=== PATIENT | female | born 1950 | race Caucasian/White ===

== ENCOUNTER → 2020-09-10 | Outpatient (CLI) | payer MEDICARE, BC ==
[~2020-09-10] MED LIST: COVID-19 VACCINE (PFIZER)/PF 30 MCG/0.3 ML VIAL IM ONE; EPINEPHRINE INJ/PF 1 MG/1 ML AMPULE IM PRN
--- OUTSIDE RECORDS SUMMARY | 2020-09-13 10:30 | XMS REPORT ---
:1950 [facility] [address] [place] [address] Care Team Providers Name Role Phone Gerri ROGERS Primary Care Physician Unavailable Carlos MOFFETT Attending Clinician Unavailable PABLITO Attending Clinician Unavailable NIGEL Attending Clinician Unavailable ALEXIS ASHBY Attending Clinician Unavailable Charlee Stephenson Attending Clinician Unavailable Isabela Attending Clinician Unavailable Jayce MOFFETT Attending Clinician Unavailable Teto Cantor Attending Clinician Unavailable Allergies, Adverse Reactions, Alerts Allergy Allergy Status Severity Reaction(s) Onset Inactive Treating C omments Name Type Date Date Clinician citalopram Allergy to Active 2019-0 hydrobromi substance 05-18 de 00:00: 00 Levofloxac Allergy to Active 0 in substance 05-18 00:00: 00 Celecoxib Allergy to Active 0 substance 05-18 00:00: 00 citalopram Allergy to Inactive 2020-0 hydrobromi substance 05-14 de 00:00: 00 Levofloxac Allergy to Inactive 2019-0 in substance 05-14 00:00: 00 Celecoxib Allergy to Inactive 2020-0 substance 05-14 00:00: 00 Celecoxib Propensity Active High Swelling fa ce to adverse 1-11 reactions 00:00: 00 Levofloxac Propensity Active Low Headache 2018-0 O ther in to adverse 1-11 react ion(s reactions 00:00: ): 00 Headache He adache Linezolid Propensity Active Other (See 2018 to adverse Comments) 1-11 reactions 00:00: 00 CeleBREX Drug Active 2017-0 allergy 2-03 00:00: 00 citalopram Allergy to Inactive Unknown hydrobromi substance 01-19 de 00:00: 00 Levofloxac Allergy to Inactive Unknown in substance 01-19 00:00: 00 Celecoxib Allergy to Inactive Unknown substance 01-19 00:00: 00 citalopram Allergy to Inactive hydrobromi substance 01-19 de 00:00: 00 Levofloxac Allergy to Inactive in substance 01-19 00:00: 00 Celecoxib Allergy to Inactive substance 01-19 00:00: 00 Oxycodone- Propensity Active Moderate Dizziness Other Acetaminop to adverse re action(s hen reactions ): Oth er (See Comments )C NS Disorder Ot her reaction (s ): Dizzines s, Other (S ee Comments )C NS Disorder Medications Ordered Filled Start Stop Current Ordering Indication Dosage Frequency Signature Comments Components Medication Medication Date Date Medication? Clinician (SIG) Name Name amoxicillin Yes Acute UTI 1{tbl} Take 1 T mariama 1 -clavulanat -12 tablet by tabl et by e 00:00: mouth mouth (AUGMENTIN) 00 Three (3) Thre e (3) 500-125 mg times a times a per tablet day. day. ciprofloxac 2019-08 No surgical 500mg ciprofloxa in HCl 08-21 prophylaxis gina HCl (CIPRO) 15:00: (CIPRO) tablet 500 00 tablet 500 mg mg ciprofloxac 2019-08 No surgical 500mg 500 mg, in HCl 08-21 prophylaxis Oral, (CIPRO) 15:00: 14:42 Once, Tue tablet 500 00 :00 06/21/20 at mg 1500, For 1 dose
Ro utine, Indication s: surgical prophylaxi s amoxicillin 2019- No Acute UTI 1{tbl} Take 1 T mariama 1 -clavulanat 05-18 tablet by tabl et by e 00:00: 00:00 mouth mouth (AUGMENTIN) 00 :00 Three (3) Thre e (3) 500-125 mg times a times a per tablet day. day. ondansetron No 8mg Take 1 Take 1 (ZOFRAN-ODT 05-17 tablet (8 tabl et (8 ) 8 MG 00:00: 00:00 mg total) mg total ) disintegrat 00 :00 by mouth by bette beck ing tablet every every eight (8) eight (8) hours as hours as needed for needed nausea. for nausea. esomeprazol 2020-0 Yes esomeprazo e (NEXIUM) 9-14 le 40 MG 00:00: (NEXIUM) capsule 00 40 MG capsule famotidine 2019-0 Yes famotidine (PEPCID) 20 9-14 (PEPCID) MG tablet 00:00: 20 MG 00 tablet LINZESS 145 2019-0 Yes LINZESS mcg capsule 9-10 145 mcg 00:00: capsule 00 amoxicillin 2019- No Acute UTI 1{tbl} Take 1 T mariama 1 -clavulanat 04-2630 tablet by tabl et by e 00:00: 00:00 mouth mouth (AUGMENTIN) 00 :00 Three (3) Thre e (3) 500-125 mg times a times a per tablet day. day. sulfamethox 2020- No Recurrent Take 1 Ta ke 1 azole-trime 8-18 06-08 UTI tablet tablet thoprim 00:00: 00:00 (160 mg of (160 m g (BACTRIM 00 :00 trimethopr of DS) 800-160 im total) trim ethop mg per by mouth rim tablet Two (2) total) by times a mouth Two day. (2) times a day. amoxicillin 2019- No Acute UTI 1{tbl} Take 1 T mariama 1 -clavulanat 830 tablet by tabl et by e 00:00: 00:00 mouth mouth (AUGMENTIN) 00 :00 Three (3) Thre e (3) 500-125 mg times a times a per tablet day. day. meclizine Yes if needed if ne eded (ANTIVERT) 7-20 25 mg 00:00: tablet 00 ciprofloxac 2019- No Acute UTI 500mg Take 1 Ta ke 1 in HCl 6-15 30 tablet tablet (CIPRO) 500 00:00: 00:00 (500 mg (500 mg MG tablet 00 :00 total) by total) by mouth Two mouth Two (2) times (2) times a day. a day. amoxicillin 2019- No Acute UTI 1{tbl} Take 1 T mariama 1 -clavulanat 6-30 tablet by tabl et by e 00:00: 00:00 mouth mouth (AUGMENTIN) 00 :00 Three (3) Thre e (3) 500-125 mg times a times a per tablet day. day. sulfamethox 2019- No Recurrent Take 1 Ta ke 1 azole-trime 5-11 08-31 UTI tablet tablet thoprim 00:00: 00:00 (160 mg of (160 m g (BACTRIM 00 :00 trimethopr of DS) 800-160 im total) trim ethop mg per by mouth rim tablet Two (2) total) by times a mouth Two day. (2) times a day. amoxicillin No Acute UTI 1{tbl} Take 1 T mariama 1 -clavulanat 4-14 06-09 tablet by tabl et by e 00:00: 00:00 mouth mouth (AUGMENTIN) 00 :00 Three (3) Thre e (3) 500-125 mg times a times a per tablet day. day. estradiol No .01mg Insert 1 Insert 1 (VAGIFEM) 06 -12 tablet tablet 10 mcg 00:00: 00:00 (0.01 mg (0.01 mg vaginal 00 :00 total) total) tablet into the into the vagina Two vagina (2) times Two (2) a week. times a week. ciprofloxac No surgical 500mg ciprofloxa in HCl 2-04 prophylaxis gina HCl (CIPRO) 16:00: (CIPRO) tablet 500 00 tablet 500 mg mg sulfamethox 2019- No Take 1 Take 1 azole-trime 2-04 05-11 tablet tablet thoprim 00:00: 00:00 (160 mg of (160 m g (BACTRIM 00 :00 trimethopr of DS) 800-160 im total) trim ethop mg per by mouth rim tablet Two (2) total) by times a mouth Two day. (2) times a day. sulfamethox No Take 1 Take 1 azole-trime 1-20 10-08 tablet tablet thoprim 00:00: 00:00 (160 mg of (160 m g (BACTRIM 00 :00 trimethopr of DS) 800-160 im total) trim ethop mg per by mouth rim tablet Two (2) total) by times a mouth Two day. (2) times a day. amoxicillin 2020-0 2020- No 1{tbl} Take 1 Take 1 -clavulanat 1-20 06-09 tablet by tabl et by e 00:00: 00:00 mouth mouth (AUGMENTIN) 00 :00 Three (3) Thre e (3) 500-125 mg times a times a per tablet day. day. HYDROcodone 2018-08 Yes HYDROcodon -acetaminop 1-26 e-acetamin hen (NORCO) 00:00: ophen 5-325 mg 00 (NORCO) per tablet 5-325 mg per tablet amoxicillin 2018-08 2019- No 1{tbl} Take 1 Take 1 -clavulanat 1-25 12-30 tablet by tabl et by e 00:00: 00:00 mouth mouth (AUGMENTIN) 00 :00 Three (3) Thre e (3) 500-125 mg times a times a per tablet day. day. hydrocortis 2018-08 Yes hydrocorti one 0-01 sone (ANUSOL-HC) 00:00: (ANUSOL-HC 2.5 % 00 ) 2.5 % rectal rectal cream cream amoxicillin 2019- No 1{tbl} Take 1 Take 1 -clavulanat 9-23 11-25 tablet by tabl et by e 00:00: 00:00 mouth mouth (AUGMENTIN) 00 :00 Three (3) Thre e (3) 500-125 mg times a times a per tablet day. day. ciprofloxac 2019- No 500mg Take 1 Take 1 in HCl 9-17 11-25 tablet tablet (CIPRO) 500 00:00: 00:00 (500 mg (500 mg MG tablet 00 :00 total) by total) by mouth Two mouth Two (2) times (2) times a day. a day. AMITIZA 24 Yes AMITIZA 24 mcg capsule 6-12 mcg 00:00: capsule 00 PROCYAN Yes Take by Take by OLIG/UBI/ 4-18 mouth mouth T A/HB#155 14:54: daily. daily. (PYCNOGENOL 32 COMPLEX ORAL) GRAPE SEED Yes Take by Take b y EXTRACT 4-18 mouth mouth (GRAPE SEED 14:54: daily. daily. ORAL) 32 simethicone No 360mg Take 360 Take 360 (GAS-X 4-18 mg by mg by ULTRA-STREN 14:54: mouth mouth GTH) 180 mg 32 Three (3) Thre e (3) capsule times a times a day. day. cannabidiol No Take by Take by , CBD, 4-18 mouth. mouth. extract 100 14:54: mg/mL Soln 32 amoxicillin 2019- No 500mg Take 1 Take 1 (AMOXIL) 18 09 capsule capsule 500 MG 00:00: 00:00 (500 mg (500 mg capsule 00 :00 total) by total) b y mouth mouth nightly. nightly. ciprofloxac 2018- No 500mg Take 1 Take 1 in HCl 10-13-18 tablet tablet (CIPRO) 500 00:00: 00:00 (500 mg (500 mg MG tablet 00 :00 total) by total) by mouth Two mouth Two (2) times (2) times a day. a day. AMITIZA 8 2018- No 8ug 8 mcg 8 mcg mcg capsule 09-18 daily. daily. 00:00: 00:00 00 :00 cannabidiol Yes Take by Take by , CBD, 1-07 mouth. mouth. extract 100 14:40: mg/mL Soln 25 oxybutynin 2017-08- No 10MG Take 1 Take 1 (DITROPAN-X 10-0707 tablet (10 tab let L) 10 MG 24 00:00: 00:00 mg total) (10 mg hr tablet 00 :00 by mouth total) by daily. mouth daily. mupirocin 2017-08- No Apply Apply (BACTROBAN) 2 12-10 topically topi twyla 2 % 00:00: 23:59 Three (3) Three (3) ointment 00 :00 times a times a day. for 7 day. for days Apply 7 days to Apply to affected affected area TID area TID simethicone 2017-08- No 80mg Chew 80 mg Ch ew 80 (MYLICON) 14 every six mg nida ry 80 MG 14:09: 00:00 (6) hours six (6) chewable 13 :00 as needed hours a s tablet for needed flatulence for . flatulenc e. simethicone 2017-08 No 360mg Take 360 Take 360 (GAS-X 0-31 06-14 mg by mg by ULTRA-STREN 14:09: 00:00 mouth mouth GTH) 180 mg 13 :00 Three (3) Thre e (3) capsule times a times a day. day. ciprofloxac 2017-08- No 500MG Take 1 Take 1 in HCl 0-26 11-05 tablet tablet (CIPRO) 500 00:00: 23:59 (500 mg (500 mg MG tablet 00 :00 total) by total) by mouth Two mouth Two (2) times (2) times a day. for a day. 10 days for 10 days phenazopyri 2017-08- No 100MG Take 1 Take 1 dine 0- 10-29 tablet tablet (PYRIDIUM) 00:00: 23:59 (100 mg (100 m g 100 MG 00 :00 total) by total) by tablet mouth mouth Three (3) Three (3) times a times a day as day as needed for needed pain. for for pain. up to 3 for up to days 3 days cefuroxime 2017-08- No 500MG Take 1 Take 1 (CEFTIN) 0-10 10- tablet tablet 500 MG 00:00: 00:00 (500 mg (500 mg tablet 00 :00 total) by total) by mouth Two mouth Two (2) times (2) times a day. a day. nitrofurant 2017-08- No 50MG Take 1 Take 1 oin 0-04 10-26 capsule capsule (MACRODANTI 00:00: 00:00 (50 mg (50 mg N) 50 MG 00 :00 total) by total) by capsule mouth Four mouth (4) times Four (4) a day. times a day. amoxicillin 2017-08- No TAKE 1 TAKE 1 (AMOXIL) 0-01 04-18 CAPSULE BY CAPSUL E 500 MG 00:00: 00:00 MOUTH AT BY MOUTH capsule 00 :00 BEDTIME AT BEDTIME omeprazole 2017- Yes 40mg Take 40 mg Gurmeet e 40 (PRILOSEC) 9-18 by mouth mg by 40 MG 00:00: daily. mouth capsule 00 daily. sucralfate 2017-0 Yes 1g Take 1 g Take 1 g (CARAFATE) 9-18 by mouth by minerva th 1 gram 00:00: Four (4) Four (4) tablet 00 times a times a day. day. mupirocin 2018- No mupirocin (BACTROBAN) 04-1014 (BACTROBAN 2 % 00:00: 00:00 ) 2 % ointment 00 :00 ointment PROCTO-MED 2018- No PROCTO-MED HC 2.5 % 04-07 HC 2.5 % rectal 00:00: 00:00 rectal cream 00 :00 cream HYDROcodone 2018- No 1{tbl} Take 1 Take 1 -acetaminop 03-14 tablet by tabl et by hen (NORCO) 00:00: 00:00 mouth mouth 5-325 mg 00 :00 every four every per tablet (4) hours four (4) as needed. hours as needed. amoxicillin 2017- No 500MG Take 1 Take 1 (AMOXIL) 12-09 capsule capsule 500 MG 00:00: 00:00 (500 mg (500 mg capsule 00 :00 total) by total) b y mouth mouth daily. At daily. At bedtime bedtime amoxicillin 2017- No 500MG Take 1 Take 1 (AMOXIL) 12-02 capsule capsule 500 MG 00:00: 00:00 (500 mg (500 mg capsule 00 :00 total) by total) b y mouth mouth Three (3) Three (3) times a times a day. day. GRAPE SEED No Take by Take b y EXTRACT 4-12 mouth mouth (GRAPE SEED 15:00: daily. daily. ORAL) 01 CRANBERRY 2017- No Take by Take by FRUIT 406-18 mouth. mouth. EXTRACT 15:00: 00:00 (CRANBERRY 01 :00 ORAL) spironolact Yes 50mg Take 50 mg Ta ke 50 one 4-12 by mouth mg by (ALDACTONE) 14:57: Two (2) mouth Two 50 MG 51 times a (2) times tablet day. a day. cholecalcif Yes 4000U Take 4,000 Ta ke will, 4-12 Units by 4,000 vitamin D3, 14:57: mouth Units b y 1,000 unit 51 daily. mouth tablet daily. cinnamon Yes 500mg Take 500 Take 50 0 bark 500 mg 4-12 mg by mg by capsule 14:57: mouth mouth 51 Three (3) Three (3) times a times a day. day. glucosamine 2018- No 2{tbl} Take 2 Take 2 sulfate 500 11-28 tablets by tab lets mg Tab 14:57: 00:00 mouth by mouth 51 :00 daily. daily. ciprofloxac 2017- No 500MG Take 1 Take 1 in HCl 11-28 tablet tablet (CIPRO) 500 00:00: 00:00 (500 mg (500 mg MG tablet 00 :00 total) by total) by mouth Two mouth Two (2) times (2) times a day. a day. cephalexin 2017- No 500MG Take 1 Take 1 (KEFLEX) 11-28 capsule capsule 500 MG 00:00: 00:00 (500 mg (500 mg capsule 00 :00 total) by total) b y mouth mouth nightly. nightly. PROCYAN No Take by Take by OLIG/UBI/ 1-30 mouth mouth T A/HB#155 14:24: daily. daily. (PYCNOGENOL 53 COMPLEX ORAL) aspirin Yes 81mg Take 81 mg Take 8 1 (ECOTRIN) -30 by mouth mg by 81 MG 14:20: daily. mouth tablet 45 daily. amitriptyli Yes 10mg Take 10 mg Ta ke 10 ne (ELAVIL) -11 by mouth mg by 10 MG 11:00: nightly. mouth tablet 29 nightly. docusate 2018- No 250mg Take 250 Take 25 0 sodium -11 06-14 mg by mg by (COLACE) 11:00: 00:00 mouth mouth 250 MG 29 :00 daily. daily. capsule dicyclomine 2017- No Take by Take by (BENTYL) 20 - 10-31 mouth. mouth. mg tablet 11:00: 00:00 29 :00 furosemide Yes 40mg Take 40 mg Gurmeet e 40 (LASIX) 40 -11 by mouth mg by MG tablet 11:00: daily. mouth 28 daily. polyethylen 2018- No 17g Take 17 g Gurmeet e 17 g e glycol 08-29 by mouth by mouth (MIRALAX) 11:00: 00:00 daily. daily. 17 gram 28 :00 packet nitrofurant 2018- No 50MG Take 1 Take 1 oin 08-29 10-26 capsule capsule (MACRODANTI 00:00: 00:00 (50 mg (50 mg N) 50 MG 00 :00 total) by total) by capsule mouth mouth nightly. nightly. cloNIDine Yes 1{patch Place [address] Place 1 (CATAPRES-T 1-08 } patch on patch on TS) 0.2 00:00: the skin the skin mg/24 hr 00 once a once a week. week. fentaNYL 2016-08 Yes 1{patch Place 1 Place 1 (DURAGESIC) 2-28 } patch on patch on 50 mcg/hr 00:00: the skin the sk in patch 00 every every third day. third day. LYRICA 75 2016-08 Yes 75mg Take 75 mg Take 75 mg capsule 2-26 by mouth mg by 00:00: daily. mouth 00 daily. atenolol 2016-08 Yes 25mg Take 25 mg Take 25 (TENORMIN) 2-23 by mouth mg by 25 MG 00:00: daily. mouth tablet 00 daily. fenofibrate 2016-08 Yes 145mg Take 145 Take 145 (TRICOR) 2-23 mg by mg by 145 MG 00:00: mouth mouth tablet 00 daily. daily. KLOR-CON 2016-08 Yes 40meq 40 mEq Two 40 mE q M20 20 mEq 1-27 (2) times Two ( 2) tablet 00:00: a day. times a 00 day. clonazePAM 2016-08 Yes 2mg 2 mg 2 mg (KLONOPIN) 0-30 nightly as nigh tly 1 MG tablet 00:00: needed. as 00 needed. Cyclobenzap 2014- No 5 Daily rine Hcl -02 16- 21:11: 00:00 00 :00 Acetaminoph No 1 en/Hydrocod one Bitart Amitriptyli No 10 ne Hcl Aspirin No 81 Atenolol No 50 Cholecalcif No 1000 will Cinnamon No 500 Bark Clonazepam No 1 Clonidine No .3 Cranberry No 500 Fruit Dicyclomine No 10 Hcl Docusate No 500 Sodium Fentanyl No 50 Furosemide No 40 Glucosamine No 500 Sulfate Hydroxychlo No 200 roquine Sulfate [place]cad[place] No 2 Grape Seed Pantoprazol No 40 e Sodium Pantoprazol No 40 e Sodium Polyethylen No 17 e Glycol Potassium No 20 Chloride Pregabalin No 75 Pycnogenol No 1 Complex Spironolact No 25 one Triamterene No 1 /Hctz Triamterene No 1 /Hctz Aspirin Yes 81 Daily Atenolol Yes 50 Twice A Day Cholecalcif Yes 1000 Daily will Cinnamon Yes 500 Twice A Bark Day Clonazepam Yes 1 At Bedtime Clonidine Yes .3 Q7 Days Cranberry Yes 500 Twice A Fruit Day Dicyclomine Yes 10 Four Times Hcl Daily Docusate Yes 500 Daily Sodium Fentanyl Yes 50 Q3 Days Furosemide Yes 40 Daily Glucosamine Yes 500 Twice A Sulfate Day Hydroxychlo Yes 200 Daily roquine Sulfate [place] Yes 2 Twice A Grape Seed Day Pantoprazol Yes 40 Daily e Sodium Polyethylen Yes 17 Daily e Glycol Potassium Yes 20 Twice A Chloride Day Pregabalin Yes 75 Three Times A Day Pycnogenol Yes 1 At Bedtime Complex Spironolact Yes 25 Twice A one Day Triamterene Yes 1 Daily /Hctz Triamterene Yes 1 Daily /Hctz Acetaminoph Yes 1 Every 4 en/Hydrocod Hours as one Bitart needed for Pain Amitriptyli Yes 10 Twice A ne Hcl Day mv-min-C-gl Yes 2{tbl} Take 2 Take 2 utamin-lysi tablets by tab lets [id number] mouth by mouth ([place], daily. daily. LYSINE HCL,) 1,000-50 mg TbEF wheat Yes Take by Take by dextrin/barbara mouth. mouth. cium/aspart am (BENEFIBER + CALCIUM SUGAR-FREE ORAL) sennosides Yes 2.5mL Take 2.5 Take 2 .5 (SENNOSIDES mL by mL by ) 8.8 mg/5 mouth mouth mL Syrp nightly. nightly. senna-docus Yes 2{tbl} Take 2 Take 2 ate tablets by tablets (PERICOLACE mouth by mouth ) 8.6-50 mg daily. daily. Clonidine 2013- No .3 Hcl 01-19 00:00 :00 Fenofibrate 2013- No 145 Daily 01-19 00:00 :00 Hydroxychlo 2013- No 200 roquine 01-19 Sulfate 00:00 :00 Klor-Con 2013- No 01-19 00:00 :00 Potassium 2013- No 25 Chloride 01-19 00:00 :00 Spironolact 2014- No one 01-19 00:00 :00 Triamterene 2013- No 1 /Hctz 01-19 00:00 :00 Fentanyl 2013- No Patch 08-25 00:00 :00 Problems Condition Condition Condition Status Onset Resolution Last Treatin g Comments Name Details Category Date Date Treatment Clinician Date Drug-induce Drug-induce [id number] Active 2020-05-18 Last d d 05-18 15:28:10 Assessm en constipatio constipatio 00:00: t & Plan: n n 00 This is been better. Nausea Nausea [id number] Active 2020-05-17 Last 05-17 11:10:51 Assessm en 00:00: t & Plan : 00 She feel s like her fentanyl is makin g her nauseate d . Thyroid Thyroid [id number] Active 2020-02-25 Last nodule nodule 02-24 15:03:27 Assessm en 00:00: t & Plan : 00 She has a 4 mm nodule o n the ultrasou n d. I think shelby oshea needs to see an ENT. Helen t is reall y small. Hyperparath Hyperparath [id number] Active 2020-02-10 Last yroidism yroidism 02-09 13:29:45 Asses smen 00:00: t & Plan : 00 Her calcium level is normal Dysuria Dysuria [id number] Active 2019-01-30 Last 01-30 10:55:24 Assessm en 00:00: t & Plan : 00 This is the symptom that she is here for. Pulmonary Pulmonary [id number] Inactiv 2018-12-04 Last nodule nodule e 18 15:29:14 Assessm en 00:00: t & Plan : 00 This was diagnose d on the last CT that she had at [facility]. Shelby oshea and I littlejohn d a length y discussi o n about this. I told her that if it were me I would discuss see Dr. Zahraa maria and let him decide o r she coul d go ahead and have the CT done helen t Dr. Jayce herrera which is a wonderfu l idea. I think shelby oshea would be very unhappy if she had a larger nodule above that and it was not diagnose d so I chase d her that I think that she should probably go ahead and follow Dr. Jyace arellano o n and have the CT. Pulmonary Pulmonary [id number] Active 2018-12-04 Last nodule nodule 12-04 15:29:14 Assessm en 00:00: t & Plan : 00 She has 3 small pulmonar y nodules that hav e not changed. When I actually looked a t the CT t o me it looks like she has a little larger area helen t is an infiltra t e in the back of the righ t lung. I would really like her to see a pulmonar y doctor a t least once to make jess e everythi n g is oka y and she just needs follow-u p x-rays. Acute Acute Condition Active 2018-10-13 Las t bilateral bilateral 10-13 11:11:13 Ass essmen low back low back 00:00: t & Pl an: pain pain 00 She has without without bilatera l sciatica sciatica pain v raymond low down on her back. Hurts to move. Sh e really hard to know. We will do a culture and star t Cipro pending culture. 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 Not on any medicati o n. Acute UTI Acute UTI Condition Active 2017-082018-06-13 Last 10:28:00 Assessm en 00:00: t & Plan : 00 She seem s to have an acute UTI base d on her urinalys i s and symptoms . She will be treated with antibiot i cs. She has frequenc y and urgency without fever or chills. Renal mass Renal mass Condition Active 2017-11-28 Last 11-28 15:25:30 Assessm en 00:00: t & Plan : 00 Was malignan t but resected , I do not have the patholog y to stage it. Recurrent Recurrent Condition Active 2017-08-29 Last UTI UTI 08-29 11:35:45 Assessm en 00:00: t & Plan : 00 We will recultur e . Kidney Kidney Condition Active 2017-08-29 Las t stones stones 08-29 11:35:47 Assessm en 00:00: t & Plan : 00 Since sh e has 1 stone it shows up on the C T Incomplete Incomplete Condition Active 2017-08-29 Last bladder bladder 08-29 11:43:41 Assessm en emptying emptying 00:00: t & Pl an: 00 Her residual is 141 a while after sh e voided. Problem Condition Inactiv e Retention Retention Problem Inactiv of urine of urine e Constipatio Constipatio Problem Inactiv n n e Procedures Procedure Date / Time Performed Performing Clinician Devic e Auto OV Level 2020-05-31 00:00:00 New Patient 2020-05-31 00:00:00 X-ray of abdomen, supine, decubitus 2020-05-14 00:00:00 and erect Computed tomography of abdomen and 2020-05-14 00:00:00 pelvis for detection of renal calculus without contrast Tray Cath 14FR W/Drain Bag 2020-05-14 00:00:00 Bag Leg Disp Lg 2274 2020-05-14 00:00:00 CT CHEST WO CONTRAST 2020-02-16 11:04:[address] ABDOMEN WO CONTRAST 2020-02-16 10:59:00 Ramesh Kenney US THYROID 2020-02-16 10:55:00 Ramesh Kenney URINE CULTURE 2019-09-03 19:20:00 Ramesh Kenney OFFICE OUTPATIENT VISIT 25 MINUTES 2017-10-03 11:08:00 OFFICE/OUTPATIENT VISIT, EST 2017-01-24 10:00:00 ROUTINE VENIPUNCTURE 2017-01-24 10:00:00 OFFICE OUTPATIENT VISIT 25 MINUTES 2016-09-21 10:53:00 URINALYSIS, AUTO, W/O SCOPE 2016-09-17 11:15:00 OFFICE/OUTPATIENT VISIT, EST 2016-09-17 11:15:00 LIPID PANEL 2016-05-15 10:45:00 OFFICE/OUTPATIENT VISIT, EST 2016-05-15 10:45:00 ROUTINE VENIPUNCTURE 2016-05-15 10:45:00 URINALYSIS, AUTO W/SCOPE 2016-05-15 10:45:00 LIPID PANEL 2016-01-10 10:30:00 TRANSFERASE (AST) (SGOT) 2016-01-10 10:30:00 OFFICE/OUTPATIENT VISIT, EST 2016-01-10 10:30:00 X-RAY EXAM OF SINUSES 2016-01-10 10:30:00 GLYCOSYLATED HEMOGLOBIN TEST 2016-01-10 10:30:00 ROUTINE VENIPUNCTURE 2016-01-10 10:30:00 URINALYSIS, AUTO W/SCOPE 2016-01-10 10:30:00 BASIC METABOLIC PANEL 2016-01-10 10:30:00 RBC SED RATE, AUTOMATED 2016-01-10 10:30:00 URINALYSIS, AUTO W/SCOPE 2015-12-05 15:30:00 OFFICE/OUTPATIENT VISIT, EST 2015-09-05 12:15:00 ELECTROCARDIOGRAM, COMPLETE 2015-09-05 12:15:00 Fecal blood scrn immunoassay 2015-09-05 12:15:00 COMPREHEN METABOLIC PANEL 2015-08-31 11:15:00 ASSAY OF VITAMIN D 2015-08-31 11:15:00 URINALYSIS, AUTO, W/O SCOPE 2015-08-31 11:15:00 COMPLETE CBC W/AUTO DIFF WBC 2015-08-31 11:15:00 ROUTINE VENIPUNCTURE 2015-08-31 11:15:00 LIPID PANEL 2015-08-31 11:15:00 URINALYSIS, AUTO W/SCOPE 2015-08-23 14:00:00 URINALYSIS, AUTO W/SCOPE 2015-08-09 14:00:00 URINALYSIS, AUTO W/SCOPE 2015-06-30 15:45:00 OFFICE/OUTPATIENT VISIT, EST 2015-06-30 15:45:00 URINALYSIS, AUTO W/SCOPE 2015-06-27 14:30:00 FLU VACCINE AGE 3 \T\ OVER, IM 2015-06-22 13:15:00 IMMUNIZATION ADMIN 2015-06-22 13:15:00 Bone Density-axial Skeleton (1 Or 2015-04-28 15:00:00 More Sites) OFFICE/OUTPATIENT VISIT, EST 2015-04-14 13:00:00 COMPLETE CBC W/AUTO DIFF WBC 2015-04-07 11:00:00 MICROALBUMIN, QUANTITATIVE 2015-04-07 11:00:00 ROUTINE VENIPUNCTURE 2015-04-07 11:00:00 GLYCOSYLATED HEMOGLOBIN TEST 2015-04-07 11:00:00 LIPID PANEL 2015-04-07 11:00:00 COMPREHEN METABOLIC PANEL 2015-04-07 11:00:00 URINALYSIS, AUTO, W/O SCOPE 2015-04-07 11:00:00 URINALYSIS, AUTO W/SCOPE 2015-01-14 08:00:00 BASIC METABOLIC PANEL 2014-11-16 11:15:00 TRANSFERASE (AST) (SGOT) 2014-11-16 11:15:00 LIPID PANEL 2014-11-16 11:15:00 GLYCOSYLATED HEMOGLOBIN TEST 2014-11-16 11:15:00 URINALYSIS, AUTO W/SCOPE 2014-11-16 11:15:00 OFFICE/OUTPATIENT VISIT, EST 2014-11-16 11:15:00 ROUTINE VENIPUNCTURE 2014-11-16 11:15:00 URINALYSIS, AUTO W/SCOPE 2014-10-21 14:15:00 GLYCOSYLATED HEMOGLOBIN TEST 2014-08-04 14:15:00 ASSAY OF VITAMIN D 2014-08-04 14:15:00 LIPID PANEL 2014-08-04 14:15:00 TRANSFERASE (AST) (SGOT) 2014-08-04 14:15:00 ROUTINE VENIPUNCTURE 2014-08-04 14:15:00 BASIC METABOLIC PANEL 2014-08-04 14:15:00 OFFICE/OUTPATIENT VISIT, EST 2014-08-04 14:15:00 URINALYSIS, AUTO W/SCOPE 2014-07-20 14:30:00 URINALYSIS, AUTO W/SCOPE 2014-07-07 13:45:00 FLU VACCINE AGE 1 \T\ OVER, IM 2014-06-23 15:30:00 IMMUNIZATION ADMIN 2014-06-23 15:30:00 URINALYSIS, AUTO, W/O SCOPE 2014-05-04 13:30:00 ASSAY OF VITAMIN D 2014-04-13 10:00:00 ROUTINE VENIPUNCTURE 2014-04-13 10:00:00 GLYCOSYLATED HEMOGLOBIN TEST 2014-04-13 10:00:00 URINALYSIS, AUTO W/SCOPE 2014-04-13 10:00:00 ELECTROCARDIOGRAM, COMPLETE 2014-04-13 10:00:00 OFFICE/OUTPATIENT VISIT, EST 2014-04-13 10:00:00 URINALYSIS, AUTO W/SCOPE 2014-04-07 09:00:00 COMPLETE CBC W/AUTO DIFF WBC 2014-04-07 09:00:00 COMPREHEN METABOLIC PANEL 2014-04-07 09:00:00 ROUTINE VENIPUNCTURE 2014-04-07 09:00:00 LIPID PANEL 2014-04-07 09:00:00 URINALYSIS, AUTO W/SCOPE 2014-03-24 13:30:00 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 2014-02-25 00:00:00 X-RAY EXAM OF SINUSES 2014-02-10 13:45:00 OFFICE/OUTPATIENT VISIT, EST 2014-02-10 13:45:00 CHEST X-RAY 2014-02-10 13:45:00 HOSPITAL DISCHARGE DAY 2014-02-04 00:00:00 SUBSEQUENT HOSPITAL CARE 2014-02-04 00:00:00 OFFICE/OUTPATIENT VISIT, EST 2014-01-26 15:00:00 Non-covered item or service 2013-12-28 13:30:00 LIPID PANEL 2013-12-09 10:15:00 ASSAY OF VITAMIN D 2013-12-09 10:15:00 TRANSFERASE (AST) (SGOT) 2013-12-09 10:15:00 OFFICE/OUTPATIENT VISIT, EST 2013-12-09 10:15:00 ROUTINE VENIPUNCTURE 2013-12-09 10:15:00 URINALYSIS, AUTO W/SCOPE 2013-12-09 10:15:00 BASIC METABOLIC PANEL 2013-12-09 10:15:00 Results Test Description Test Time Test Comments Text Results Atomic Results Result Comments oxygen saturation, oximetry 2020-05-31 09:44:00 Test Item Value Reference Range Comments oxygen saturation, oximetry (test code = 20970) 96% % UA (urinalysis)2020-05-14 13:51:00 Test Item Value Reference Range Comments Urine Collection Type (test code = 90523-0) URN,CC Urine color [id number] 13:51:00 Test Item Value Reference Range Comments Urine Color (test code = 5778-6) YELLOW YELLOW Urine appearance [id number] 13:51:00 Test Item Value Reference Range Comments Urine Appearance (test code = 5767-9) CLEAR CLEAR Urine glucose detection by test [id number] 13:51:00 Test Item Value Reference Range Comments Urine Glucose (UA) (test code = 50045-0) NEGATIVE NEGATIV E Urine total bilirubin detection by test [id number] 13:51:00 Test Item Value Reference Range Comments Urine Bilirubin (test code = 5770-3) NEGATIVE NEGATIVE Urine ketones detection by test [id number] 13:51:00 Test Item Value Reference Range Comments Urine Ketones (test code = 2514-8) NEGATIVE NEGATIVE Specific gravity of Urine by Refractometry [id number] 13:51:00 Test Item Value Reference Range Comments Urine Specific [place] (test code = 09592-0) 1.012 1.0 10-1.025 Urine erythrocytes [id number] 13:51:00 Test Item Value Reference Range Comments Urine Occult Blood (test code = 95311-5) NEGATIVE NEG, TR BG Urine pH [id number] 13:51:00 Test Item Value Reference Range Comments Urine pH (test code = 2756-5) 6.5 5.0-7.5 Urine protein detection by test [id number] 13:51:00 Test Item Value Reference Range Comments Urine Protein (test code = 51980-2) NEGATIVE NEG, TRACE Urine urobilinogen [id number] 13:51:00 Test Item Value Reference Range Comments Urine Urobilinogen (test code = 41485-7) 1.0 0.2 Urine nitrite [id number] 13:51:00 Test Item Value Reference Range Comments Urine Nitrate (test code = 34581-6) NEGATIVE NEGATIVE Leukocyte esterase ur jsyhtaeu0513-18-19 13:51:00 Test Item Value Reference Range Comments Urine Leukocyte Esterase (test code = 5799-2) NEGATIVE NE G, TRACE US Thyroid (02/16/2020 10:55 AM EDT)2020-02-16 00:00:00US Thyroid (02/16/2020 10:55 AM EDT)NarrativePerformed AtThis result has an attachment that is not av ailable.CT Abdomen Wo Contrast (02/16/2020 10:59 AM EDT)2020-02-16 00:00:00CT Abdomen Wo Contrast (02/16/2020 10:59 AM EDT)NarrativePerformed At CT Chest Wo Contrast (02/16/2020 11:04 AM EDT)2020-02-16 00:00:00CT Chest Wo Contrast (02/16/2020 11:04 AM EDT)NarrativePerformed At #[id number] 14:20:00 Test Item Value Reference Range Comments Urine Culture, Comprehensive (test Final report code = Urine Culture, Comprehensive) Result 1 (test code = Result 1) Proteus penneri Result 2 (test code = Result 2) Klebsiella pneumoniae Antimicrobial Susceptibility (test Comment code = Antimicrobial Susceptibility) Urine [id number] 11:30:00Urine Culture, Comprehensive Comment: URINE CULTUREFinal CULTURE WORKUP 10/26/17 CB ORG. 1 STREP GP 72 CB ORG. 1 PURITY MIXRPT GP 72 ORG. 2 ? S.A. SUB 10/28/17 CB ORG. 1 PURITY MIX GP 72 ORG. 2 STAPH LATEX POS 71 Organism 1 ENTEROCOCCUS FAECALIS COLONY COUNTGREATER THAN 100,000 CFU/ml Organism 2 STAPHYLOCOCCUS AUREUS COLONY COUNT50,000-100,000 CFU/ml ENTEROCOCCUS [id number] GRAM POS SENSITIVITY RX M.I.C. SUPERVISING EDITOR TRAILER AMPICILLIN S CHLORAMPHENICOL S CIPROFLOXACIN R ERYTHROMYCIN R NITROFURANTOIN R LEVOFLOXACIN R LINEZOLID S MINOCYCLINE R SUPERVISING EDITOR TRAILER NORFLOXACIN R SUPERVISING EDITOR TRAILER PENICILLIN S SYNERGY-GENTAMICIN HIGH LEVEL R SUPERVISING EDITOR TRAILER SYNERGY-STREPTOMYCIN HIGH LVL S SUPERVISING EDITOR TRAILER VANCOMYCIN S DAPTOMYCIN S SUPERVISING EDITOR TRAILER STAPHYLOCOCCUS [id number] GRAM POS SENSITIVITY RX M.I.C. SUPERVISING EDITOR TRAILER CLINDAMYCIN R CIPROFLOXACIN S ERYTHROMYCIN R NITROFURANTOIN S GENTAMICIN S LEVOFLOXACIN S LINEZOLID S MOXIFLOXACIN S SUPERVISING EDITOR TRAILER MINOCYCLINE S SUPERVISING EDITOR TRAILER OXACILLIN S CEFOXITIN SCREE NNEG PENICILLIN R RIFAM PINS TRIMETH/SULFA S QUINUPRISTIN/DALFOPRISTIN S TE TRACYCLINES VANCOMYCINS DAPTOMYCINS SUPERVISING EDITOR TRAILER ORG. 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 [facility] CONVERSIONUrine Culture, Comprehensive ([facility]: [id number]) [id number])2017-10-07 00:00:00 Test Item Value Reference Range Comments Urine Culture,Comprehensive (test code = Final report [id number]) Result 1 (test code = 507464) Comment Protein+Creatinine Urine (Random) ([facility]: [id number]) ([id number])2017-10-01 00:00:00 Test Item Value Reference Range Comments Protein/Creat Urine Ratio (test code = 89061-9) 126.29 mg/g 0.00-200.00 Urine Creatinine Random (test code = Urine 103.7 mg/dL Creatinine Random) Urine/CFP Protein Random (test code = Urine/CFP 13.1 mg/dL Protein Random) ALT (SGPT) ([facility]: [id number])2017-10-01 00:00:00 Test Item Value Reference Range Comments ALT (test code = ALT) 26 IU/L 14-59 Renal Function Panel (10) ([facility]: [id number]) ([id number])2017-10-01 00:00:00 Test Item Value Reference Range Comments AnGp (test code = AnGp) 15.20 eGFR Non (test code = 48.96 mL/min/1.73m2 eGFR Non ) eGFR (test code = eGFR 59.24 mL/min/1.73m2 ) Carbon dioxide (test code = Carbon 25.9 mEq/L 21.0-32.0 dioxide) Albumin (test code = Albumin) 4.0 g/dL 3.4-5.0 Potassium (test code = Potassium) 4.1 mEq/L 3.5-5.1 Sodium (test code = Sodium) 140 mEq/L 136-145 Calcium (test code = Calcium) 9.8 mg/dL 8.5-10.1 BUN (test code = BUN) 32 mg/dL 7-18 Chloride (test code = Chloride) 103 mEq/L 98-107 Glucose (test code = Glucose) 103 mg/dL 74-106 Creatinine (test code = Creatinine) 1.1 mg/dL 0.6-1.0 Phosphorus (test code = Phosphorus) 4.0 mg/dL 2.6-4.7 Intact PTH ([facility]: [id number]) ([id number])2017-10-01 00:00:00 Test Item Value Reference Range Comments IPTH (test code = IPTH) 26.9 pg/mL 8.2-83.5 CBC, Platelet; No Differential ([facility]: [id number]) ([id number])2017-10-01 00:00:00 Test Item Value Reference Range Comments Hemoglobin (test code = Hemoglobin) 14.2 g/dL 11.2-15.7 MCHC (test code = MCHC) 32.0 g/dL 32.2-35.5 MCH (test code = MCH) 29.6 pg/cell 25.6-32.2 Hematocrit (test code = Hematocrit) 44.4 % 34.1-44.9 MCV (test code = MCV) 93 fL 79-95 RDWC (test code = RDWC) 14.6 % 11.7-14.4 Platelet count (test code = Platelet count) 226 x10-3/uL 182- 369 MPV (test code = MPV) 10.7 fl WBC (test code = WBC) 7.2 x10-3/uL 4.0-10.0 RBC (test code = RBC) 4.79 x10-6/uL 3.93-5.22 Magnesium, Serum ([facility]: [id number]) ([id number])2017-10-01 00:00:00 Test Item Value Reference Range Comments Magnesium (test code = Magnesium) 2.0 mg/dL 1.8-2.4 Vitamin D, 25-Hydroxy ([facility]: [id number]) ([id number])2017-10-01 00:00:00 Test Item Value Reference Range Comments Vitamin D (test code = Vitamin D) 58.6 ng/mL 30.0-100.0 Lipid Panel ([facility]: [id number])2017-10-01 00:00:00 Test Item Value Reference Range Comments HDL (test code = HDL) 34 mg/dL 40-60 Triglyceride (test code = Triglyceride) 214 mg/dL <150 Cholesterol (test code = Cholesterol) 170 mg/dL <200 cLDL (test code = cLDL) 93.20 <100.00 cVLDL (test code = cVLDL) 42.80 <32.00 AST (SGOT) ([facility]: [id number])2017-10-01 00:00:00 Test Item Value Reference Range Comments AST (test code = AST) 26 IU/L 15-37 Creatine Kinase, Total, Serum ([facility]: [id number])2017-10-01 00:00:00 Test Item Value Reference Range Comments Creatinine Kinase (test code = Creatinine Kinase) 31 U/L 26-192 URINALYSIS([id number])2017-04-25 15:18:00 Test Item Value Reference Range Comments UKET (test code = UKET) NEGATIVE Negative PH (test code = PH) 6.5 UUROBIL (test code = UUROBIL) 1.0 0.2, 1.0 UBLD (test code = UBLD) NEGATIVE Negative NIT (test code = NIT) NEGATIVE Negative COLOR (test code = COLOR) YELLOW Yellow KRISTINE (test code = KRISTINE) NEGATIVE Negative UGLU (test code = UGLU) NEGATIVE Negative SPGR (test code = SPGR) 1.015 1.010-1.030 UBIL (test code = UBIL) NEGATIVE MG/DL Negative CLAR (test code = CLAR) CLEAR Clear TPU (test code = TPU) NEGATIVE Negative URINE [id number] 11:05:00 Test Item Value Reference Range Comments GOKUL (test code = GOKUL) 1+ None UWBC (test code = UWBC) 0-2 NONE EPI (test code = EPI) 1-2 None URINALYSIS()2017-04-09 11:05:00 Test Item Value Reference Range Comments UBIL (test code = UBIL) NEGATIVE MG/DL Negative SPGR (test code = SPGR) 1.015 1.010-1.030 COLOR (test code = COLOR) YELLOW Yellow UUROBIL (test code = UUROBIL) 0.2 0.2, 1.0 UGLU (test code = UGLU) NEGATIVE Negative UBLD (test code = UBLD) NEGATIVE Negative PH (test code = PH) 5.5 TPU (test code = TPU) NEGATIVE Negative KRISTINE (test code = KRISTINE) TRACE Negative UKET (test code = UKET) NEGATIVE Negative NIT (test code = NIT) NEGATIVE Negative CLAR (test code = CLAR) CLEAR Clear [id number] 14:08:00 Test Item Value Reference Range Comments HGB (test code = HGB) 13.3 G/DL 11.4-14.4 RDW (test code = RDW) 13.8 % 12.0-15.1 RBC (test code = RBC) 4.68 CU/MM 3.69-4.88 MCHC (test code = MCHC) 33.4 G/DL 33.5-35.5 PLT (test code = PLT) 188 K/UL 165-353 HCT (test code = HCT) 39.7 % 33.3-41.4 MCH (test code = MCH) 28.4 PQ 26.8-33.2 MCV (test code = MCV) 85 FL 79-95 WBC (test code = WBC) 7.3 K/UL 3.6-11.1 CHEM [id number] 14:08:00 Test Item Value Reference Range Comments CA (test code = CA) 9.3 MG/DL 8.5-10.1 TP (test code = TP) 6.8 G/DL 6.9-8.5 ION GAP (test code = ION GAP) 8 4-16 CO2 (test code = CO2) 32.2 MMOL/L 21.0-32.0 EGFRAA (test code = EGFRAA) 63.51 >60.00 NA (test code = NA) 143 MMOL/L 136-145 GLU (test code = GLU) 109 MG/DL 70-110 BUN/CREAT RATIO (test code = BUN/CREAT RATIO) 20 10 -14 CR (test code = CR) 1.1 MG/DL 0.4-1.3 ALB (test code = ALB) 3.8 G/DL 3.2-4.7 ALT (test code = ALT) 20 U/L 9-61 K (test code = K) 4.3 MMOL/L 3.5-5.1 BUN (test code = BUN) 22 MG/DL 7-18 ALK PHOS (test code = ALK PHOS) 51 U/L 50-136 AST (test code = AST) 24 U/L 9-37 BILT (test code = BILT) 0.3 MG/DL 0.1-1.0 GLOB (test code = GLOB) 3.0 1.9-4.5 EGFR (test code = EGFR) 52.40 >60.00 CL (test code = CL) 107 MMOL/L 98-110 URINALYSIS([id number])2017-03-14 14:08:00 Test Item Value Reference Range Comments NIT (test code = NIT) NEGATIVE Negative SPGR (test code = SPGR) 1.010 1.010-1.030 COLOR (test code = COLOR) YELLOW Yellow UGLU (test code = UGLU) NEGATIVE Negative UBLD (test code = UBLD) NEGATIVE Negative CLAR (test code = CLAR) CLEAR Clear UBIL (test code = UBIL) NEGATIVE MG/DL Negative PH (test code = PH) 5.5 UUROBIL (test code = UUROBIL) 0.2 0.2, 1.0 KRISTINE (test code = KRISTINE) NEGATIVE Negative TPU (test code = TPU) NEGATIVE Negative UKET (test code = UKET) NEGATIVE Negative Urine Culture, [id number] 14:08:00 Test Item Value Reference Range Comments Result 1 (test code = 341871) No growth Result 1 (test code = 4959263) No growth Urine Culture, Routine (test code = 627074) Final report Urine Culture, Routine (test code = 4747969) Final report URINE [id number] 13:15:00 Test Item Value Reference Range Comments UWBC (test code = UWBC) TNTC NONE URBC (test code = URBC) 5-10 None GOKUL (test code = GOKUL) 3+ None EPI (test code = EPI) Occ None URINALYSIS([id number])2017-02-25 13:15:00 Test Item Value Reference Range Comments UBIL (test code = UBIL) NEGATIVE MG/DL Negative NIT (test code = NIT) POSITIVE Negative UUROBIL (test code = UUROBIL) 0.2 0.2, 1.0 UBLD (test code = UBLD) 3+ Negative TPU (test code = TPU) NEGATIVE Negative SPGR (test code = SPGR) 1.010 1.010-1.030 KRISTINE (test code = KRISTINE) 3+ Negative UGLU (test code = UGLU) NEGATIVE Negative UKET (test code = UKET) NEGATIVE Negative COLOR (test code = COLOR) YELLOW Yellow PH (test code = PH) 5.5 CLAR (test code = CLAR) CLOUDY Clear URINE [id number] 14:48:00 Test Item Value Reference Range Comments URBC (test code = URBC) None None UWBC (test code = UWBC) 0-2 NONE GOKUL (test code = GOKUL) 3+ None EPI (test code = EPI) Occ None URINALYSIS([id number])2017-02-06 14:48:00 Test Item Value Reference Range Comments UBLD (test code = UBLD) NEGATIVE Negative CLAR (test code = CLAR) CLEAR Clear PH (test code = PH) 6.0 UKET (test code = UKET) NEGATIVE Negative UUROBIL (test code = UUROBIL) 0.2 0.2, 1.0 KRISTINE (test code = KRISTINE) NEGATIVE Negative COLOR (test code = COLOR) YELLOW Yellow UGLU (test code = UGLU) NEGATIVE Negative UBIL (test code = UBIL) NEGATIVE MG/DL Negative TPU (test code = TPU) NEGATIVE Negative NIT (test code = NIT) POSITIVE Negative SPGR (test code = SPGR) 1.010 1.010-1.030 AST(SGOT)2017-01-24 10:30:00 Test Item Value Reference Range Comments AST (test code = AST) 20 U/L 9-37 LIPID [id number] 10:30:00 Test Item Value Reference Range Comments HDL (test code = HDL) 34 MG/DL 32-96 CHOL (test code = CHOL) 156 MG/DL 140-200 DLDL (test code = DLDL) 94 MG/DL 100-130 CHD (test code = CHD) 21.79 TGL (test code = TGL) 169 MG/DL 30-200 LYTES [id number] 10:30:00 Test Item Value Reference Range Comments CR (test code = CR) 1.3 MG/DL 0.4-1.3 NA (test code = NA) 141 MMOL/L 136-145 CL (test code = CL) 104 MMOL/L 98-110 EGFRAA (test code = EGFRAA) 52.39 >60.00 CA (test code = CA) 9.3 MG/DL 8.5-10.1 GLU (test code = GLU) 120 MG/DL 70-110 EGFR (test code = EGFR) 43.23 >60.00 ION GAP (test code = ION GAP) 12 4-16 CO2 (test code = CO2) 29.0 MMOL/L 21.0-32.0 BUN/CREAT RATIO (test code = BUN/CREAT RATIO) 22 10 -14 BUN (test code = BUN) 28 MG/DL 7-18 K (test code = K) 4.3 MMOL/L 3.5-5.1 [id number] 10:30:00 Test Item Value Reference Range Comments HA1C (test code = HA1C) 5.7 % 4.8-6.0 URINALYSIS([id number])2016-12-27 14:15:00 Test Item Value Reference Range Comments CLAR (test code = CLAR) CLEAR Clear UBIL (test code = UBIL) NEGATIVE MG/DL Negative TPU (test code = TPU) NEGATIVE Negative UKET (test code = UKET) NEGATIVE Negative UBLD (test code = UBLD) NEGATIVE Negative UGLU (test code = UGLU) NEGATIVE Negative NIT (test code = NIT) POSITIVE Negative SPGR (test code = SPGR) 1.010 1.010-1.030 UUROBIL (test code = UUROBIL) 0.2 0.2, 1.0 KRISTINE (test code = KRISTINE) NEGATIVE Negative COLOR (test code = COLOR) YELLOW Yellow PH (test code = PH) 5.5 URINE [id number] 14:15:00 Test Item Value Reference Range Comments GOKUL (test code = GOKUL) 2+ None UWBC (test code = UWBC) 0-2 NONE Urine Culture, [id number] 12:56:00 Test Item Value Reference Range Comments Result 1 (test code = 072187) No growth Urine Culture, Routine (test code = 155903) Final report Urine Culture, Routine (test code = 5830774) Final report Result 1 (test code = 5454634) No growth URINE [id number] 12:56:00 Test Item Value Reference Range Comments UWBC (test code = UWBC) 5-10 NONE GOKUL (test code = GOKUL) 4+ None EPI (test code = EPI) 2-4 None URBC (test code = URBC) None None URINALYSIS([id number])2016-10-17 12:56:00 Test Item Value Reference Range Comments NIT (test code = NIT) NEGATIVE Negative SPGR (test code = SPGR) 1.015 1.010-1.030 UKET (test code = UKET) NEGATIVE Negative COLOR (test code = COLOR) YELLOW Yellow UBIL (test code = UBIL) NEGATIVE MG/DL Negative UGLU (test code = UGLU) NEGATIVE Negative UUROBIL (test code = UUROBIL) 1.0 0.2, 1.0 TPU (test code = TPU) NEGATIVE Negative PH (test code = PH) 6.5 UBLD (test code = UBLD) NEGATIVE Negative CLAR (test code = CLAR) CLOUDY Clear KRISTINE (test code = KRISTINE) 1+ Negative OCCULT BLOOD AUTO [id number] 11:37:00 Test Item Value Reference Range Comments OCBS (test code = OCBS) Negative Negative SURE PATH PAP [id number] 11:37:00 Test Item Value Reference Range Comments Sendouts * (test code = ) Sent to Reference Lab Urine Culture, [id number] 11:36:00 Test Item Value Reference Range Comments Urine Culture, Routine (test code = 920534) Final report Result 1 (test code = 308900) No growth Result 1 (test code = 7675985) No growth Urine Culture, Routine (test code = 6274056) Final report URINALYSIS([id number])2016-09-17 11:36:00 Test Item Value Reference Range Comments SPGR (test code = SPGR) 1.010 1.010-1.030 COLOR (test code = COLOR) YELLOW Yellow UKET (test code = UKET) NEGATIVE Negative KRISTINE (test code = KRISTINE) NEGATIVE Negative UUROBIL (test code = UUROBIL) 0.2 0.2, 1.0 TPU (test code = TPU) NEGATIVE Negative UBIL (test code = UBIL) NEGATIVE MG/DL Negative NIT (test code = NIT) NEGATIVE Negative UGLU (test code = UGLU) NEGATIVE Negative UBLD (test code = UBLD) NEGATIVE Negative CLAR (test code = CLAR) CLEAR Clear PH (test code = PH) 5.0 Urine Culture, [id number] 10:46:00 Test Item Value Reference Range Comments Result 1 (test code = 798605) Comment Result 1 (test code = 3340735) Comment Urine Culture, Routine (test code = 833043) Final report Urine Culture, Routine (test code = 5669906) Final report [id number] 10:46:00 Test Item Value Reference Range Comments MAG (test code = MAG) 1.9 MG/DL 1.8-2.4 URINE [id number] 10:46:00 Test Item Value Reference Range Comments URBC (test code = URBC) None None EPI (test code = EPI) 1-2 None UWBC (test code = UWBC) 2-4 NONE GOKUL (test code = GOKUL) 3+ None PARATHYROID [id number] 10:46:00 Test Item Value Reference Range Comments PTH (test code = PTH) 28.7 PG/ML 8.2-83.5 CBC WITH [id number] 10:46:00 Test Item Value Reference Range Comments RDW (test code = RDW) 13.9 % 12.0-15.1 HGB (test code = HGB) 13.0 G/DL 11.4-14.4 GR% (test code = GR%) 56.6 % 43.3-71.9 EO% (test code = EO%) 4.9 % 0.0-7.8 LY# (test code = LY#) 1.7 K/uL 1.1-2.7 BA% (test code = BA%) 0.8 % 0.0-1.1 MCV (test code = MCV) 86 FL 79-95 MCHC (test code = MCHC) 33.0 G/DL 32.0-35.5 GR# (test code = GR#) 3.2 K/uL 1.9-7.2 PLT (test code = PLT) 194 K/UL 165-353 MO% (test code = MO%) 7.5 % 4.6-12.4 LY% (test code = LY%) 30.2 % 16.8-43.5 MPV (test code = MPV) 8.4 FL 7.5-10.7 MO# (test code = MO#) 0.4 # 0.3-0.8 RBC (test code = RBC) 4.58 M/uL 3.69-4.88 MCH (test code = MCH) 28.4 PQ 26.8-33.2 EO# (test code = EO#) 0.3 # 0.0-0.5 HCT (test code = HCT) 39.4 % 33.3-41.4 BA# (test code = BA#) 0.0 K/uL 0.0-0.1 WBC (test code = WBC) 5.6 K/UL 3.6-11.1 Prot+CreatU (Random)2016-09-12 10:46:00 Test Item Value Reference Range Comments Creatinine, Urine (test code = 883780) 83.3 mg/dL Not Estab . Protein,Total,Urine (test code = 430042) 13.0 mg/dL Not Est ab. Protein/Creat Ratio (test code = 370899) 156 mg/g creat 0-200 [id number] 10:46:00 Test Item Value Reference Range Comments PHOS (test code = PHOS) 3.5 MG/DL 2.5-4.9 CHEM [id number] 10:46:00 Test Item Value Reference Range Comments AST (test code = AST) 19 U/L 9-37 CA (test code = CA) 9.0 MG/DL 8.5-10.1 NA (test code = NA) 143 MMOL/L 136-145 K (test code = K) 3.8 MMOL/L 3.5-5.1 CR (test code = CR) 1.0 MG/DL 0.4-1.3 BUN (test code = BUN) 27 MG/DL 7-18 ALT (test code = ALT) 20 U/L 9-61 EGFR (test code = EGFR) 58.58 >60.00 ION GAP (test code = ION GAP) 12 4-16 GLOB (test code = GLOB) 3.1 1.9-4.5 GLU (test code = GLU) 113 MG/DL 70-110 CL (test code = CL) 108 MMOL/L 98-110 ALK PHOS (test code = ALK PHOS) 52 U/L 50-136 TP (test code = TP) 6.7 G/DL 6.9-8.5 EGFRAA (test code = EGFRAA) 71.00 >60.00 BILT (test code = BILT) 0.3 MG/DL 0.1-1.0 ALB (test code = ALB) 3.6 G/DL 3.2-4.7 BUN/CREAT RATIO (test code = BUN/CREAT RATIO) 27 10 -14 CO2 (test code = CO2) 27.1 MMOL/L 21.0-32.0 25 OH VITAMIN D [id number] 10:46:00 Test Item Value Reference Range Comments VIT D (test code = VIT D) 36 NG/ML 30-100 LIPID [id number] 10:46:00 Test Item Value Reference Range Comments TGL (test code = TGL) 126 MG/DL 30-200 DLDL (test code = DLDL) 85 MG/DL 100-130 CHOL (test code = CHOL) 141 MG/DL 140-200 CHD (test code = CHD) 27.66 HDL (test code = HDL) 39 MG/DL 32-96 [id number] 10:46:00 Test Item Value Reference Range Comments UALB (test code = UALB) 1.3 MG/L 1.3-20.0 UALB/UCR RATIO (test code = UALB/UCR RATIO) 1 MG/DL UCR (test code = UCR) 89.2 MG/DL 30.0-125.0 URINALYSIS()2016-09-12 10:46:00 Test Item Value Reference Range Comments UBLD (test code = UBLD) NEGATIVE Negative UUROBIL (test code = UUROBIL) 1.0 0.2, 1.0 UBIL (test code = UBIL) NEGATIVE MG/DL Negative PH (test code = PH) 6.5 COLOR (test code = COLOR) YELLOW Yellow CLAR (test code = CLAR) CLEAR Clear SPGR (test code = SPGR) 1.015 1.010-1.030 UKET (test code = UKET) NEGATIVE Negative UGLU (test code = UGLU) NEGATIVE Negative TPU (test code = TPU) NEGATIVE Negative KRISTINE (test code = KRISTINE) 1+ Negative NIT (test code = NIT) NEGATIVE Negative GLY.[id number] 10:46:00 Test Item Value Reference Range Comments HA1C (test code = HA1C) 5.5 % 4.8-6.0 URINALYSIS()2016-07-03 15:21:00 Test Item Value Reference Range Comments UBIL (test code = UBIL) NEGATIVE MG/DL Negative SPGR (test code = SPGR) 1.015 1.010-1.030 UGLU (test code = UGLU) NEGATIVE Negative UUROBIL (test code = UUROBIL) 1.0 0.2, 1.0 KRISTINE (test code = KRISTINE) NEGATIVE Negative CLAR (test code = CLAR) CLEAR Clear PH (test code = PH) 6.5 NIT (test code = NIT) NEGATIVE Negative UBLD (test code = UBLD) NEGATIVE Negative TPU (test code = TPU) NEGATIVE Negative UKET (test code = UKET) NEGATIVE Negative COLOR (test code = COLOR) YELLOW Yellow Urine Culture, [id number] 15:21:00 Test Item Value Reference Range Comments Urine Culture, Routine (test code = 097076) Final report Result 1 (test code = 766736) Comment Result 1 (test code = 2803433) Comment Urine Culture, Routine (test code = 5443899) Final report LYTES [id number] 11:15:00 Test Item Value Reference Range Comments CA (test code = CA) 9.4 MG/DL 8.5-10.1 CO2 (test code = CO2) 30.8 MMOL/L 21.0-32.0 GLU (test code = GLU) 103 MG/DL 70-110 BUN/CREAT RATIO (test code = BUN/CREAT RATIO) 23 10 -14 NA (test code = NA) 141 MMOL/L 136-145 BUN (test code = BUN) 25 MG/DL 7-18 CR (test code = CR) 1.1 MG/DL 0.4-1.3 K (test code = K) 4.8 MMOL/L 3.5-5.1 EGFRAA (test code = EGFRAA) 63.66 >60.00 ION GAP (test code = ION GAP) 10 4-16 EGFR (test code = EGFR) 52.53 >60.00 CL (test code = CL) 105 MMOL/L 98-110 GLY.[id number] 11:15:00 Test Item Value Reference Range Comments HA1C (test code = HA1C) 5.2 % 4.8-6.0 URINALYSIS([id number])2016-05-15 11:15:00 Test Item Value Reference Range Comments NIT (test code = NIT) NEGATIVE Negative CLAR (test code = CLAR) CLEAR Clear COLOR (test code = COLOR) YELLOW Yellow KRISTINE (test code = KRISTINE) 1+ Negative UKET (test code = UKET) NEGATIVE Negative SPGR (test code = SPGR) 1.020 1.010-1.030 UUROBIL (test code = UUROBIL) 1.0 0.2, 1.0 UGLU (test code = UGLU) NEGATIVE Negative TPU (test code = TPU) NEGATIVE Negative PH (test code = PH) 7.0 UBLD (test code = UBLD) NEGATIVE Negative UBIL (test code = UBIL) NEGATIVE MG/DL Negative LIPID [id number] 11:15:00 Test Item Value Reference Range Comments HDL (test code = HDL) 37 MG/DL 32-96 TGL (test code = TGL) 194 MG/DL 30-200 DLDL (test code = DLDL) 92 MG/DL 100-130 CHD (test code = CHD) 23.72 CHOL (test code = CHOL) 156 MG/DL 140-200 Urine Culture, [id number] 11:15:00 Test Item Value Reference Range Comments Result 1 (test code = 036951) Comment Urine Culture, Routine (test code = 923130) Final report Result 1 (test code = 0168602) Comment Urine Culture, Routine (test code = 9421802) Final report URINE [id number] 11:15:00 Test Item Value Reference Range Comments UWBC (test code = UWBC) Occ NONE GOKUL (test code = GOKUL) Trace None EPI (test code = EPI) 2-4 None URBC (test code = URBC) Occ None AST(SGOT)2016-05-15 11:15:00 Test Item Value Reference Range Comments AST (test code = AST) 21 U/L 9-37 Urine [id number] 15:50:00Urine Culture, Comprehensive Comment: URINE CULTUREFinal NO GROWTH DAY 2 COMMENTS: @SPECIMEN TRANSIT DELAY-PERSONNEL: 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, 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 [facility] CONVERSION URINALYSIS([id number])2016-03-28 15:48:00 Test Item Value Reference Range Comments PH (test code = PH) 6.0 CLAR (test code = CLAR) CLEAR Clear KRISTINE (test code = KRISTINE) NEGATIVE Negative SPGR (test code = SPGR) 1.015 1.010-1.030 COLOR (test code = COLOR) YELLOW Yellow UGLU (test code = UGLU) NEGATIVE Negative NIT (test code = NIT) NEGATIVE Negative UKET (test code = UKET) NEGATIVE Negative UBIL (test code = UBIL) NEGATIVE MG/DL Negative UUROBIL (test code = UUROBIL) 0.2 0.2, 1.0 UBLD (test code = UBLD) NEGATIVE Negative TPU (test code = TPU) NEGATIVE Negative Urine Culture, [id number] 15:48:00 Test Item Value Reference Range Comments Urine Culture, Routine (test code = 661148) Final report Urine Culture, Routine (test code = 8753566) Final report Result 1 (test code = 252962) No growth Result 1 (test code = 3210357) No growth URINALYSIS([id number])2016-03-07 12:39:00 Test Item Value Reference Range Comments UUROBIL (test code = UUROBIL) 0.2 0.2, 1.0 PH (test code = PH) 6.0 NIT (test code = NIT) NEGATIVE Negative UBIL (test code = UBIL) NEGATIVE MG/DL Negative SPGR (test code = SPGR) 1.015 1.010-1.030 TPU (test code = TPU) NEGATIVE Negative KRISTINE (test code = KRISTINE) NEGATIVE Negative COLOR (test code = COLOR) YELLOW Yellow UKET (test code = UKET) NEGATIVE Negative UGLU (test code = UGLU) NEGATIVE Negative UBLD (test code = UBLD) NEGATIVE Negative CLAR (test code = CLAR) CLEAR Clear Urine Culture, [id number] 12:39:00 Test Item Value Reference Range Comments Result 1 (test code = 575397) Comment Urine Culture, Routine (test code = 090337) Final report Result 1 (test code = 9957914) Comment Urine Culture, Routine (test code = 3804069) Final report URINALYSIS([id number])2016-01-10 11:19:00 Test Item Value Reference Range Comments CLAR (test code = CLAR) CLEAR Clear UBIL (test code = UBIL) NEGATIVE MG/DL Negative SPGR (test code = SPGR) 1.020 1.010-1.030 UUROBIL (test code = UUROBIL) 0.2 0.2, 1.0 TPU (test code = TPU) NEGATIVE Negative UBLD (test code = UBLD) NEGATIVE Negative NIT (test code = NIT) NEGATIVE Negative KRISTINE (test code = KRISTINE) 2+ Negative UGLU (test code = UGLU) NEGATIVE Negative PH (test code = PH) 5.5 COLOR (test code = COLOR) YELLOW Yellow UKET (test code = UKET) NEGATIVE Negative LIPID [id number] 11:19:00 Test Item Value Reference Range Comments CHD (test code = CHD) 21.09 DLDL (test code = DLDL) 95 MG/DL 100-130 HDL (test code = HDL) 31 MG/DL 32-96 TGL (test code = TGL) 177 MG/DL 30-200 CHOL (test code = CHOL) 147 MG/DL 140-200 LYTES [id number] 11:19:00 Test Item Value Reference Range Comments CR (test code = CR) 1.0 MG/DL 0.4-1.3 CL (test code = CL) 105 MMOL/L 98-110 EGFR (test code = EGFR) 58.70 >60.00 CA (test code = CA) 9.4 MG/DL 8.5-10.1 K (test code = K) 3.9 MMOL/L 3.5-5.1 BUN/CREAT RATIO (test code = BUN/CREAT RATIO) 26 10 -14 NA (test code = NA) 140 MMOL/L 136-145 GLU (test code = GLU) 99 MG/DL 70-110 ION GAP (test code = ION GAP) 10 4-16 CO2 (test code = CO2) 29.2 MMOL/L 21.0-32.0 EGFRAA (test code = EGFRAA) 71.14 >60.00 BUN (test code = BUN) 26 MG/DL 7-18 AST(SGOT)2016-01-10 11:19:00 Test Item Value Reference Range Comments AST (test code = AST) 21 U/L 9-37 ESR ([id number])2016-01-10 11:19:00 Test Item Value Reference Range Comments ESR (test code = ESR) 4 MM/HR 0-20 URINE [id number] 11:19:00 Test Item Value Reference Range Comments EPI (test code = EPI) 1-2 None UWBC (test code = UWBC) 0-2 NONE URBC (test code = URBC) Occ None GOKUL (test code = GOKUL) Trace None [id number] 11:19:00 Test Item Value Reference Range Comments HA1C (test code = HA1C) 5.1 % 4.8-6.0 URINALYSIS([id number])2015-12-05 15:47:00 Test Item Value Reference Range Comments NIT (test code = NIT) NEGATIVE Negative TPU (test code = TPU) NEGATIVE Negative KRISTINE (test code = KRISTINE) TRACE Negative UBLD (test code = UBLD) NEGATIVE Negative CLAR (test code = CLAR) CLEAR Clear UUROBIL (test code = UUROBIL) 0.2 0.2, 1.0 UBIL (test code = UBIL) NEGATIVE MG/DL Negative SPGR (test code = SPGR) 1.010 1.010-1.030 COLOR (test code = COLOR) YELLOW Yellow UGLU (test code = UGLU) NEGATIVE Negative UKET (test code = UKET) NEGATIVE Negative PH (test code = PH) 6.0 Urine Culture, [id number] 15:47:00 Test Item Value Reference Range Comments Urine Culture, Routine (test code = 535448) Final report Urine Culture, Routine (test code = 7925669) Final report Result 1 (test code = 379969) Comment Result 1 (test code = 7928981) Comment URINE [id number] 15:47:00 Test Item Value Reference Range Comments GOKUL (test code = GOKUL) Trace None EPI (test code = EPI) 4-6 None UWBC (test code = UWBC) 5-10 NONE URBC (test code = URBC) Occ None Urine [id number] 14:30:00Urine Culture, Comprehensive Comment: URINE CULTUREFinal CULTURE WORKUP 09/09 ORG. 1 LF, GNIS Organism 1 ESCHERICHIA COLI COLONY COUNTGREATER KTPO045,000 CFU/ml ESCHERICHIA [id number] GRAM NEG SENSITIVITY RX M.I.C. SUPERVISING EDITOR TRAILER AMPICILLIN S AMOXICILLIN/CLAVULANIC ACID S SUPERVISING EDITOR TRAILER AMIKACIN S AZTREONAM S CEFO TETAN S SUPERVISING EDITOR TRAILER CEFTAZIDIME S SUPERVISING EDITOR TRAILER CEPHALOTHIN I SUPERVISING EDITOR TRAILER CIPROFLOXACIN S CEFPODOXIME S SUPERVISING EDITOR TRAILER CEFTRIAXONE S CEFOTAXIMES CEFUROXIME- AXETIL S SUPERVISING EDITOR TRAILER CEFUROXIME-SODIUM S SUPERVISING EDITOR TRAILER CEFAZOLIN S CEFTIZOXIME S SUPERVISING EDITOR TRAILER ERTAPENEM S ESBL NEG CEFEPIME S NITROFURANTOIN S CEFOXITIN S GENTAMICIN S IMIPENEM S SUPERVISING EDITOR TRAILER LEVOFLOXA CINS MOXI FLOXACINS SUPERVISING EDITOR TRAILER MEROPENEM S NALIDIXIC ACIDS SUPERVISING EDITOR TRAILER NORFLOXACIN S SUPERVISING EDITOR TRAILER TOBRAMYCINS PIPERACILLINS SUPERVISING EDITOR TRAILER AMPICILLIN/SULBACTAMS TRIMETH/SULFA S TETRACYCLINES TICARCILLIN S SUPERVISING EDITOR TRAILER PIPERACILLIN/TAZOBACTAM S DORIPENEM S COMMENTS: @SPECIMEN TRANSIT DELAY- PERSONNEL: CBN, 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 [facility] CONVERSIONOCCULT BLOOD AUTO [id number] 12:59:00 Test Item Value Reference Range Comments OCBS (test code = OCBS) Negative Negative URINALYSIS([id number])2015-08-31 10:30:00 Test Item Value Reference Range Comments SPGR (test code = SPGR) 1.015 1.010-1.030 CLAR (test code = CLAR) CLEAR Clear UBIL (test code = UBIL) NEGATIVE MG/DL Negative COLOR (test code = COLOR) YELLOW Yellow UGLU (test code = UGLU) NEGATIVE Negative NIT (test code = NIT) NEGATIVE Negative UBLD (test code = UBLD) NEGATIVE Negative UUROBIL (test code = UUROBIL) 0.2 0.2, 1.0 UKET (test code = UKET) NEGATIVE Negative KRISTINE (test code = KRISTINE) NEGATIVE Negative TPU (test code = TPU) NEGATIVE Negative PH (test code = PH) 6.0 25 OH VITAMIN D [id number] 10:30:00 Test Item Value Reference Range Comments VIT D (test code = VIT D) 31 N NG/ML 30-100 LIPID [id number] 10:30:00 Test Item Value Reference Range Comments HDL (test code = HDL) 31 MG/DL 32-96 CHOL (test code = CHOL) 144 MG/DL 140-200 TGL (test code = TGL) 159 MG/DL 30-200 CHD (test code = CHD) 21.53 DLDL (test code = DLDL) 91 MG/DL 100-130 GLY.[id number] 10:30:00 Test Item Value Reference Range Comments HA1C (test code = HA1C) 5.6 % 4.8-6.0 CHEM [id number] 10:30:00 Test Item Value Reference Range Comments GLOB (test code = GLOB) 3.3 1.9-4.5 GLU (test code = GLU) 124 MG/DL 70-110 AST (test code = AST) 23 U/L 9-37 BILT (test code = BILT) 0.4 MG/DL 0.1-1.0 ALK PHOS (test code = ALK PHOS) 66 U/L 50-136 CL (test code = CL) 105 MMOL/L 98-110 BUN (test code = BUN) 23 MG/DL 7-18 CR (test code = CR) 1.0 MG/DL 0.4-1.3 NA (test code = NA) 142 MMOL/L 136-145 K (test code = K) 4.6 MMOL/L 3.5-5.1 TP (test code = TP) 7.0 G/DL 6.9-8.5 CA (test code = CA) 9.5 MG/DL 8.5-10.1 ALT (test code = ALT) 26 U/L 9-61 ION GAP (test code = ION GAP) 13 4-16 EGFRAA (test code = EGFRAA) 71.22 >60.00 EGFR (test code = EGFR) 58.76 >60.00 BUN/CREAT RATIO (test code = BUN/CREAT RATIO) 23 10 -14 ALB (test code = ALB) 3.7 G/DL 3.2-4.7 CO2 (test code = CO2) 28.9 MMOL/L 21.0-32.0 CBC WITH [id number] 10:30:00 Test Item Value Reference Range Comments WBC (test code = WBC) 5.2 K/UL 3.6-11.1 MO# (test code = MO#) 0.5 # 0.3-0.8 HCT (test code = HCT) 41.8 H % 33.3-41.4 EO% (test code = EO%) 5.3 % 0.0-7.8 GR% (test code = GR%) 53.4 % 43.3-71.9 EO# (test code = EO#) 0.3 # 0.0-0.5 MPV (test code = MPV) 8.2 FL 7.5-10.7 PLT (test code = PLT) 216 K/UL 165-353 HGB (test code = HGB) 13.6 G/DL 11.4-14.4 MO% (test code = MO%) 9.8 % 4.6-12.4 MCHC (test code = MCHC) 32.7 G/DL 32.0-35.5 BA% (test code = BA%) 0.7 % 0.0-1.1 LY% (test code = LY%) 30.8 % 16.8-43.5 BA# (test code = BA#) 0.0 K/uL 0.0-0.1 GR# (test code = GR#) 2.8 K/uL 1.9-7.2 LY# (test code = LY#) 1.6 K/uL 1.1-2.7 MCH (test code = MCH) 27.5 PQ 26.8-33.2 RBC (test code = RBC) 4.96 H M/uL 3.69-4.88 RDW (test code = RDW) 14.4 % 12.0-15.1 MCV (test code = MCV) 84 FL 79-95 URINE [id number] 14:15:00 Test Item Value Reference Range Comments URBC (test code = URBC) None None EPI (test code = EPI) Occ None GOKUL (test code = GOKUL) Trace None UWBC (test code = UWBC) 1-2 NONE Urine Culture, [id number] 14:15:00 Test Item Value Reference Range Comments Urine Culture, Routine (test code = 038596) Final report Result 1 (test code = 198599) Comment Antimicrobial Susceptibility (test code = Comment 256401) Result 1 (test code = 3000165) Comment Antimicrobial Susceptibility (test code = Comment 6875693) Urine Culture, Routine (test code = 14579351) Final report Antimicrobial Susceptibility (test code = Comment 6195821) Result 1 (test code = 0866187) Comment URINALYSIS([id number])2015-08-23 14:15:00 Test Item Value Reference Range Comments UKET (test code = UKET) NEGATIVE Negative UUROBIL (test code = UUROBIL) 0.2 0.2, 1.0 COLOR (test code = COLOR) YELLOW Yellow NIT (test code = NIT) NEGATIVE Negative KRISTINE (test code = KRISTINE) TRACE Negative TPU (test code = TPU) NEGATIVE Negative UBLD (test code = UBLD) NEGATIVE Negative CLAR (test code = CLAR) CLEAR Clear UBIL (test code = UBIL) NEGATIVE MG/DL Negative UGLU (test code = UGLU) NEGATIVE Negative PH (test code = PH) 5.0 SPGR (test code = SPGR) 1.010 1.010-1.030 URINALYSIS([id number])2015-08-09 12:30:00 Test Item Value Reference Range Comments CLAR (test code = CLAR) CLOUDY Clear COLOR (test code = COLOR) YELLOW Yellow UUROBIL (test code = UUROBIL) 0.2 0.2, 1.0 UGLU (test code = UGLU) NEGATIVE Negative NIT (test code = NIT) POSITIVE Negative UBLD (test code = UBLD) TRACE Negative PH (test code = PH) 5.5 KRISTINE (test code = KRISTINE) 2+ Negative TPU (test code = TPU) NEGATIVE Negative UKET (test code = UKET) NEGATIVE Negative UBIL (test code = UBIL) NEGATIVE MG/DL Negative SPGR (test code = SPGR) 1.015 1.010-1.030 Urine Culture, [id number] 12:30:00 Test Item Value Reference Range Comments Urine Culture, Routine (test code = 023174) Final report Result 1 (test code = 038161) Escherichia coli Urine Culture, Routine (test code = Final report [id number]) Result 1 (test code = 3916378) Escherichia coli Antimicrobial Susceptibility (test code = Comment 769754) Antimicrobial Susceptibility (test code = Comment 74770876) Urine Culture, Routine (test code = Final report 3967893) Antimicrobial Susceptibility (test code = Comment 6081344) Result 1 (test code = 39814715) Escherichia coli URINE [id number] 12:30:00 Test Item Value Reference Range Comments GOKUL (test code = GOKUL) 3+ None EPI (test code = EPI) 1-2 None UWBC (test code = UWBC) 5-10 NONE URINE [id number] 16:12:00 Test Item Value Reference Range Comments URBC (test code = URBC) Occ None GOKUL (test code = GOKUL) 1+ None UWBC (test code = UWBC) 5-10 NONE EPI (test code = EPI) 1-2 None UWBC (test code = UWBC9) 5-10 NONE URBC (test code = URBC10) Occ None GOKUL (test code = BAC11) 1+ None EPI (test code = EPI12) 1-2 None URBC (test code = URBC13) Occ None GOKUL (test code = BAC14) 1+ None EPI (test code = EPI15) 1-2 None UWBC (test code = UWBC16) 5-10 NONE UWBC (test code = UWBC7) 5-10 NONE EPI (test code = EPI9) 1-2 None UWBC (test code = UWBC12) 5-10 NONE EPI (test code = EPI13) 1-2 None URBC (test code = URBC15) Occ None URBC (test code = URBC16) Occ None URINALYSIS([id number])2015-06-30 16:12:00 Test Item Value Reference Range Comments KRISTINE (test code = KRISTINE) 1+ Negative UGLU (test code = UGLU) Negative Negative NIT (test code = NIT) Positive Negative UKET (test code = UKET) Negative Negative UUROBIL (test code = UUROBIL) 0.2 0.2, 1.0 PH (test code = PH) 5.5 UKET (test code = UKET11) Negative Negative UGLU (test code = UGLU12) Negative Negative CLAR (test code = CLAR) Clear Clear SPGR (test code = SPGR) <=1.005 1.010-1.030 UBLD (test code = UBLD) Negative Negative UBIL (test code = UBIL) Negative MG/DL Negative UBLD (test code = UBLD17) Negative Negative UBIL (test code = UBIL18) Negative MG/DL Negative COLOR (test code = COLOR) Yellow Yellow CLAR (test code = CLAR20) Clear Clear COLOR (test code = COLOR22) Yellow Yellow COLOR (test code = COLOR23) Yellow Yellow UBIL (test code = UBIL25) Negative MG/DL Negative CLAR (test code = CLAR26) Clear Clear TPU (test code = TPU) Negative Negative UKET (test code = UKET29) Negative Negative KRISTINE (test code = LEU30) 1+ Negative UBLD (test code = UBLD31) Negative Negative TPU (test code = TPU32) Negative Negative KRISTINE (test code = LEU33) 1+ Negative NIT (test code = NIT34) Positive Negative SPGR (test code = SPGR35) <=1.005 1.010-1.030 TPU (test code = TPU36) Negative Negative SPGR (test code = SPGR38) <=1.005 1.010-1.030 NIT (test code = NIT39) Positive Negative UGLU (test code = UGLU40) Negative Negative KRISTINE (test code = LEU12) 1+ Negative COLOR (test code = COLOR14) Yellow Yellow KRISTINE (test code = LEU16) 1+ Negative UKET (test code = UKET22) Negative Negative TPU (test code = TPU24) Negative Negative NIT (test code = NIT25) Positive Negative UBIL (test code = UBIL26) Negative MG/DL Negative CLAR (test code = CLAR27) Clear Clear TPU (test code = TPU30) Negative Negative COLOR (test code = COLOR31) Yellow Yellow UBIL (test code = UBIL32) Negative MG/DL Negative NIT (test code = NIT33) Positive Negative CLAR (test code = CLAR34) Clear Clear UBLD (test code = UBLD35) Negative Negative SPGR (test code = SPGR36) <=1.005 1.010-1.030 UGLU (test code = UGLU37) Negative Negative UGLU (test code = UGLU38) Negative Negative UBLD (test code = UBLD39) Negative Negative SPGR (test code = SPGR40) <=1.005 1.010-1.030 Urine Culture, [id number] 16:12:00 Test Item Value Reference Range Comments Antimicrobial Susceptibility (test code = Comment 813069) Urine Culture, Routine (test code = 910766) Final report Result 1 (test code = 263646) Escherichia coli Urine Culture, Routine (test code = Final report [id number]) Antimicrobial Susceptibility (test code = Comment 1435942) Result 1 (test code = 10678231) Escherichia coli Antimicrobial Susceptibility (test code = Comment 0665171) Urine Culture, [id number] 14:17:00 Test Item Value Reference Range Comments Urine Culture, Routine (test code = 074239) Final report Result 1 (test code = 000402) Comment Result 1 (test code = 9602182) Comment Urine Culture, Routine (test code = 0038191) Final report Urine Culture, Routine (test code = 1412983) Final report Result 1 (test code = 3994803) Comment URINE [id number] 14:17:00 Test Item Value Reference Range Comments UWBC (test code = UWBC) 2-4 NONE EPI (test code = EPI) 2-4 None GOKUL (test code = GOKUL) Trace None URBC (test code = URBC) Occ None URINALYSIS([id number])2015-06-27 14:17:00 Test Item Value Reference Range Comments TPU (test code = TPU) NEGATIVE Negative NIT (test code = NIT) NEGATIVE Negative CLAR (test code = CLAR) CLEAR Clear UBIL (test code = UBIL) NEGATIVE MG/DL Negative COLOR (test code = COLOR) YELLOW Yellow UBLD (test code = UBLD) NEGATIVE Negative UUROBIL (test code = UUROBIL) 0.2 0.2, 1.0 UKET (test code = UKET) NEGATIVE Negative SPGR (test code = SPGR) 1.015 1.010-1.030 PH (test code = PH) 6.5 KRISTINE (test code = KRISTINE) TRACE Negative UGLU (test code = UGLU) NEGATIVE Negative Urine [id number] 16:17:00Urine Culture, Comprehensive Comment: URINE CULTUREFinal REPORTED RESULTS LESS THAN 10,000 STAPH SPECIES LESS THAN 10,000 LACTOSE GASTROENTEROLOGY NURSE PRACTITIONER CULTURE WORKUP 06/08/15 RK ORG. 1 STR SUB Organism 1 ENTEROCOCCUS FAECALIS REPORTED RESULT MULTIPLE SPECIES PRESENT--PREDOMINATE ORGANISM IDENTIFIED COLONY COUNTGREATER THAN 100,000 CFU/ml ENTEROCOCCUS [id number] GRAM POS SENSITIVITY RX M.I.C. SUPERVISING EDITOR TRAILER AMPICILLINS CHLORAMPHENICOL S CIPROFLOXACIN R ERYTHROMYCINR NITROFURANTOINS LEVOFLOXACINR LINEZOLID S MINOCYCLINE R SUPERVISING EDITOR TRAILER NORFLOXACIN R SUPERVISING EDITOR TRAILER PENICILLIN S SYNERGY-GENTAMICIN HIGH LEVEL R SUPERVISING EDITOR TRAILER SYNERGY- STREPTOMYCIN HIGH LVL S SUPERVISING EDITOR TRAILER VANCOMYCINS DAPTOMYCINS COMMENTS: @SPECIMEN TRANSIT DELAY-PERSONNEL: BOOKERN, 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 [facility] CONVERSIONCHEM [id number] 09:17:00 Test Item Value Reference Range Comments TP (test code = TP) 7.1 G/DL 6.9-8.5 CA (test code = CA) 9.5 MG/DL 8.5-10.1 CR (test code = CR) 1.1 MG/DL 0.4-1.3 ALB (test code = ALB) 4.0 G/DL 3.2-4.7 GLOB (test code = GLOB) 3.1 1.9-4.5 K (test code = K) 3.9 MMOL/L 3.5-5.1 EGFRAA (test code = EGFRAA) 63.88 >60.00 AST (test code = AST) 23 U/L 9-37 GLU (test code = GLU) 114 MG/DL 70-110 CO2 (test code = CO2) 24.9 MMOL/L 21.0-32.0 EGFR (test code = EGFR) 52.70 >60.00 BUN/CREAT RATIO (test code = BUN/CREAT RATIO) 21 10 -14 ION GAP (test code = ION GAP) 15 4-16 NA (test code = NA) 140 MMOL/L 136-145 BILT (test code = BILT) 0.5 MG/DL 0.1-1.0 BUN (test code = BUN) 23 MG/DL 7-18 ALT (test code = ALT) 32 U/L 9-61 CL (test code = CL) 104 MMOL/L 98-110 ALK PHOS (test code = ALK PHOS) 61 U/L 50-136 LIPID [id number] 09:17:00 Test Item Value Reference Range Comments HDL (test code = HDL) 29 MG/DL 32-96 CHOL (test code = CHOL) 156 MG/DL 140-200 TGL (test code = TGL) 225 MG/DL 30-200 CHD (test code = CHD) 18.59 DLDL (test code = DLDL) 102 MG/DL 100-130 URINALYSIS([id number])2015-04-07 09:17:00 Test Item Value Reference Range Comments PH (test code = PH) 6.5 TPU (test code = TPU) NEGATIVE Negative NIT (test code = NIT) NEGATIVE Negative UBLD (test code = UBLD) NEGATIVE Negative UGLU (test code = UGLU) NEGATIVE Negative COLOR (test code = COLOR) YELLOW Yellow UUROBIL (test code = UUROBIL) 1.0 0.2, 1.0 UKET (test code = UKET) NEGATIVE Negative CLAR (test code = CLAR) CLOUDY Clear UBIL (test code = UBIL) NEGATIVE MG/DL Negative KRISTINE (test code = KRISTINE) NEGATIVE Negative SPGR (test code = SPGR) 1.015 1.010-1.030 [id number] 09:17:00 Test Item Value Reference Range Comments UCR (test code = UCR) 132.6 MG/DL 30.0-125.0 UALB/UCR RATIO (test code = UALB/UCR RATIO) 3 MG/DL UALB (test code = UALB) 4.6 MG/L 1.3-20.0 CBC WITH [id number] 09:17:00 Test Item Value Reference Range Comments MO# (test code = MO#) 0.6 # 0.3-0.8 MPV (test code = MPV) 8.3 FL 7.5-10.7 EO# (test code = EO#) 0.2 # 0.0-0.5 GR% (test code = GR%) 53.5 % 43.3-71.9 RBC (test code = RBC) 4.78 M/uL 3.69-4.88 LY# (test code = LY#) 1.9 K/uL 1.1-2.7 BA% (test code = BA%) 0.6 % 0.0-1.1 MCV (test code = MCV) 86 FL 79-95 WBC (test code = WBC) 5.8 K/UL 3.6-11.1 RDW (test code = RDW) 13.6 % 12.0-15.1 MO% (test code = MO%) 9.6 % 4.6-12.4 HGB (test code = HGB) 13.8 G/DL 11.4-14.4 MCHC (test code = MCHC) 33.4 G/DL 32.0-35.5 PLT (test code = PLT) 194 K/UL 165-353 HCT (test code = HCT) 41.2 % 33.3-41.4 LY% (test code = LY%) 32.3 % 16.8-43.5 EO% (test code = EO%) 4.0 % 0.0-7.8 BA# (test code = BA#) 0.0 K/uL 0.0-0.1 GR# (test code = GR#) 3.1 K/uL 1.9-7.2 MCH (test code = MCH) 28.8 PQ 26.8-33.2 GLY.[id number] 09:17:00 Test Item Value Reference Range Comments HA1C (test code = HA1C) 5.3 % 4.8-6.0 Urine [id number] 16:43:00Urine Culture, Comprehensive Comment: URINE CULTUREFinal Organism 1 ENTEROCOCCUS FAECALIS COLONY COUNTGREATER THAN 100,000 CFU/ml ENTEROCOCCUS [id number] GRAM POS SENSITIVITY RX M.I.C. SUPERVISING EDITOR TRAILER AMPICILLINS CHLORAMPHENICOL R CIPROFLOXACIN R ERYTHROMYCIN R NITROFURANTOIN S LEVOFLOXACIN R LINEZOLID S MINOCYCLINE S SUPERVISING EDITOR TRAILER NORFLOXACIN R SUPERVISING EDITOR TRAILER PENICILLIN S SYNERGY-GENTAMICINHIGH LEVEL S SUPERVISING EDITOR TRAILER SYNERGY-STREPTOMYCIN HIGH LVL R SUPERVISING EDITOR TRAILER TIGECYCLINE S VANCOMYCIN S DAPTOMYCIN S [facility] CONVERSIONUrine Culture, [id number] 08:03:00 Test Item Value Reference Range Comments Result 1 (test code = 035092) Escherichia coli Antimicrobial Susceptibility (test code = Comment 525616) Urine Culture, Routine (test code = 590505) Final report Antimicrobial Susceptibility (test code = Comment 0254314) Result 1 (test code = 9142076) Escherichia coli Urine Culture, Routine (test code = Final report [id number]) Urine Culture, Routine (test code = Final report [id number]) Antimicrobial Susceptibility (test code = Comment 6323511) Result 1 (test code = 44141254) Escherichia coli URINALYSIS([id number])2015-01-14 08:03:00 Test Item Value Reference Range Comments CLAR (test code = CLAR) CLOUDY Clear NIT (test code = NIT) POSITIVE Negative TPU (test code = TPU) NEGATIVE Negative UBIL (test code = UBIL) NEGATIVE MG/DL Negative UUROBIL (test code = UUROBIL) 0.2 0.2, 1.0 UGLU (test code = UGLU) NEGATIVE Negative UKET (test code = UKET) NEGATIVE Negative COLOR (test code = COLOR) YELLOW Yellow KRISTINE (test code = KRISTINE) 1+ Negative PH (test code = PH) 6.5 SPGR (test code = SPGR) 1.015 1.010-1.030 UBLD (test code = UBLD) NEGATIVE Negative URINE [id number] 08:03:00 Test Item Value Reference Range Comments UWBC (test code = UWBC) 5-10 NONE URBC (test code = URBC) None None GOKUL (test code = GOKUL) 4+ None EPI (test code = EPI) 1-2 None LYTES [id number] 11:32:00 Test Item Value Reference Range Comments GLU (test code = GLU) 118 MG/DL 70-110 ION GAP (test code = ION GAP) 14 4-16 CA (test code = CA) 9.6 MG/DL 8.5-10.1 CR (test code = CR) 1.4 MG/DL 0.4-1.3 CL (test code = CL) 104 MMOL/L 98-110 CO2 (test code = CO2) 28.0 MMOL/L 21.0-32.0 NA (test code = NA) 142 MMOL/L 136-145 BUN (test code = BUN) 31 MG/DL 7-18 K (test code = K) 4.1 MMOL/L 3.5-5.1 BUN/CREAT RATIO (test code = BUN/CREAT RATIO) 22 10 -14 URINALYSIS([id number])2014-11-16 11:32:00 Test Item Value Reference Range Comments UGLU (test code = UGLU) NEGATIVE Negative UBLD (test code = UBLD) NEGATIVE Negative UBIL (test code = UBIL) NEGATIVE MG/DL Negative UUROBIL (test code = UUROBIL) 0.2 0.2, 1.0 CLAR (test code = CLAR) CLEAR Clear PH (test code = PH) 7.0 COLOR (test code = COLOR) YELLOW Yellow SPGR (test code = SPGR) 1.020 1.010-1.030 TPU (test code = TPU) NEGATIVE Negative KRISTINE (test code = KRISTINE) 1+ Negative UKET (test code = UKET) NEGATIVE Negative NIT (test code = NIT) NEGATIVE Negative LIPID [id number] 11:32:00 Test Item Value Reference Range Comments HDL (test code = HDL) 32 MG/DL 32-96 CHOL (test code = CHOL) 161 MG/DL 140-200 CHD (test code = CHD) 19.88 TGL (test code = TGL) 240 MG/DL 30-200 DLDL (test code = DLDL) 103 MG/DL 100-130 URINE [id number] 11:32:00 Test Item Value Reference Range Comments GOKUL (test code = GOKUL) Trace None URBC (test code = URBC) Occ None UWBC (test code = UWBC) 0-2 NONE EPI (test code = EPI) Occ None [id number] 11:32:00 Test Item Value Reference Range Comments HA1C (test code = HA1C) 5.6 % 4.8-6.0 AST(SGOT)2014-11-16 11:32:00 Test Item Value Reference Range Comments AST (test code = AST) 21 U/L 9-37 Urine Culture, [id number] 12:45:00 Test Item Value Reference Range Comments Result 1 (test code = 518363) Escherichia coli Antimicrobial Susceptibility (test code = Comment 839872) Urine Culture, Routine (test code = 876834) Final report Result 1 (test code = 8669166) Escherichia coli Antimicrobial Susceptibility (test code = Comment 9473322) Urine Culture, Routine (test code = Final report [id number]) Antimicrobial Susceptibility (test code = Comment 5895553) URINALYSIS([id number])2014-10-21 12:45:00 Test Item Value Reference Range Comments UKET (test code = UKET) NEGATIVE Negative PH (test code = PH) 5.5 UBLD (test code = UBLD) NEGATIVE Negative UUROBIL (test code = UUROBIL) 0.2 0.2, 1.0 NIT (test code = NIT) POSITIVE Negative UGLU (test code = UGLU) NEGATIVE Negative KRISTINE (test code = KRISTINE) 1+ Negative TPU (test code = TPU) NEGATIVE Negative UBIL (test code = UBIL) NEGATIVE MG/DL Negative COLOR (test code = COLOR) YELLOW Yellow CLAR (test code = CLAR) CLEAR Clear SPGR (test code = SPGR) 1.015 1.010-1.030 URINE [id number] 12:45:00 Test Item Value Reference Range Comments URBC (test code = URBC) Occ None EPI (test code = EPI) Occ None UWBC (test code = UWBC) 2-4 NONE GOKUL (test code = GOKUL) 2+ None LIPID [id number] 15:01:00 Test Item Value Reference Range Comments CHOL (test code = CHOL) 163 MG/DL 140-200 DLDL (test code = DLDL) 104 MG/DL 100-130 HDL (test code = HDL) 30 MG/DL 32-96 CHD (test code = CHD) 18.40 TGL (test code = TGL) 269 MG/DL 30-200 AST(SGOT)2014-08-04 15:01:00 Test Item Value Reference Range Comments AST (test code = AST) 26 U/L 9-37 LYTES [id number] 15:01:00 Test Item Value Reference Range Comments BUN (test code = BUN) 23 MG/DL 7-18 CR (test code = CR) 1.4 MG/DL 0.4-1.3 NA (test code = NA) 140 MMOL/L 136-145 ION GAP (test code = ION GAP) 10 4-16 CA (test code = CA) 9.7 MG/DL 8.5-10.1 GLU (test code = GLU) 148 MG/DL 70-110 CO2 (test code = CO2) 30.5 MMOL/L 21.0-32.0 K (test code = K) 4.5 MMOL/L 3.5-5.1 BUN/CREAT RATIO (test code = BUN/CREAT RATIO) 16 10 -14 CL (test code = CL) 104 MMOL/L 98-110 [id number] 15:01:00 Test Item Value Reference Range Comments HA1C (test code = HA1C) 5.3 % 4.8-6.0 25 OH VITAMIN D [id number] 15:01:00 Test Item Value Reference Range Comments VIT D (test code = VIT D) 34 N NG/ML 30-100 URINALYSIS([id number])2014-07-20 12:21:00 Test Item Value Reference Range Comments PH (test code = PH) 6.5 CLAR (test code = CLAR) CLEAR Clear TPU (test code = TPU) NEGATIVE Negative UBIL (test code = UBIL) NEGATIVE MG/DL Negative NIT (test code = NIT) POSITIVE Negative UUROBIL (test code = UUROBIL) 1.0 0.2, 1.0 UBLD (test code = UBLD) NEGATIVE Negative COLOR (test code = COLOR) YELLOW Yellow UGLU (test code = UGLU) NEGATIVE Negative UKET (test code = UKET) NEGATIVE Negative SPGR (test code = SPGR) 1.010 1.010-1.030 KRISTINE (test code = KRISTINE) 3+ Negative URINE [id number] 12:21:00 Test Item Value Reference Range Comments URBC (test code = URBC) None None GOKUL (test code = GOKUL) 3+ None UWBC (test code = UWBC) 5-10 NONE EPI (test code = EPI) 1-2 None Urine Culture, [id number] 12:21:00 Test Item Value Reference Range Comments Antimicrobial Susceptibility (test code = Comment 110206) Urine Culture, Routine (test code = 220470) Final report Result 1 (test code = 228166) Escherichia coli Result 1 (test code = 5250555) Escherichia coli Antimicrobial Susceptibility (test code = Comment 6355083) Urine Culture, Routine (test code = Final report [id number]) Urine Culture, Routine (test code = Final report [id number]) Antimicrobial Susceptibility (test code = Comment 70632430) URINE [id number] 11:48:00 Test Item Value Reference Range Comments EPI (test code = EPI) 10-15 None UWBC (test code = UWBC) TNTC NONE URBC (test code = URBC) None None GOKUL (test code = GOKUL) 4+\X0D0A\ None Urine Culture, [id number] 11:48:00 Test Item Value Reference Range Comments Urine Culture, Routine (test code = 304265) Final report Urine Culture, Routine (test code = Final report [id number]) Antimicrobial Susceptibility (test code = Comment 525477) Result 1 (test code = 246769) Escherichia coli Result 1 (test code = 0264707) Escherichia coli Antimicrobial Susceptibility (test code = Comment 03278868) Antimicrobial Susceptibility (test code = Comment 8639124) Urine Culture, Routine (test code = Final report [id number]) Result 1 (test code = 07483131) Escherichia coli URINALYSIS(59708)2014-07-07 11:48:00 Test Item Value Reference Range Comments CLAR (test code = CLAR) CLOUDY Clear UBLD (test code = UBLD) NEGATIVE Negative KRISTINE (test code = KRISTINE) 3+ Negative TPU (test code = TPU) NEGATIVE Negative NIT (test code = NIT) POSITIVE Negative UBIL (test code = UBIL) NEGATIVE MG/DL Negative COLOR (test code = COLOR) YELLOW Yellow UKET (test code = UKET) NEGATIVE Negative UGLU (test code = UGLU) NEGATIVE Negative PH (test code = PH) 6.0 SPGR (test code = SPGR) 1.020 1.010-1.030 UUROBIL (test code = UUROBIL) 1.0 0.2, 1.0 URINALYSIS()2014-05-04 13:29:00 Test Item Value Reference Range Comments UBIL (test code = UBIL) NEGATIVE MG/DL Negative NIT (test code = NIT) NEGATIVE Negative SPGR (test code = SPGR) 1.010 1.010-1.030 UBLD (test code = UBLD) NEGATIVE Negative TPU (test code = TPU) NEGATIVE Negative UKET (test code = UKET) NEGATIVE Negative UUROBIL (test code = UUROBIL) 0.2 0.2, 1.0 COLOR (test code = COLOR) YELLOW Yellow PH (test code = PH) 6.5 CLAR (test code = CLAR) CLEAR Clear UGLU (test code = UGLU) NEGATIVE Negative KRISTINE (test code = KRISTINE) NEGATIVE Negative Urine Culture, [id number] 13:29:00 Test Item Value Reference Range Comments Sendouts (test code = Sendouts) Sent to Reference Lab Sendouts (test code = Sendouts6) Sent to Reference Lab Urine Culture, [id number] 10:53:00 Test Item Value Reference Range Comments Sendouts (test code = Sendouts) Sent to Reference Lab Sendouts (test code = Sendouts6) Sent to Reference Lab [id number] 10:53:00 Test Item Value Reference Range Comments HA1C (test code = HA1C) 5.6 % 4.8-6.0 25 OH VITAMIN D [id number] 10:53:00 Test Item Value Reference Range Comments VIT D (test code = VIT D) 30 N NG/ML 30-100 URINE [id number] 10:53:00 Test Item Value Reference Range Comments GOKUL (test code = GOKUL) 4+\X0D0A\ None EPI (test code = EPI) 2-4 None URBC (test code = URBC) None None UWBC (test code = UWBC) 4-6 NONE URINALYSIS()2014-04-13 10:53:00 Test Item Value Reference Range Comments UBIL (test code = UBIL) NEGATIVE MG/DL Negative UKET (test code = UKET) NEGATIVE Negative SPGR (test code = SPGR) 1.010 1.010-1.030 UGLU (test code = UGLU) NEGATIVE Negative UUROBIL (test code = UUROBIL) 0.2 0.2, 1.0 UBLD (test code = UBLD) NEGATIVE Negative PH (test code = PH) 6.0 COLOR (test code = COLOR) YELLOW Yellow KRISTINE (test code = KRISTINE) 1+ Negative TPU (test code = TPU) NEGATIVE Negative CLAR (test code = CLAR) CLEAR Clear NIT (test code = NIT) POSITIVE Negative CBC WITH [id number] 09:59:00 Test Item Value Reference Range Comments HCT (test code = HCT) 41.0 % 33.3-41.4 MCV (test code = MCV) 84 FL 79-95 MO% (test code = MO%) 10.3 % 4.6-12.4 MO# (test code = MO#) 0.6 # 0.3-0.8 LY# (test code = LY#) 1.8 K/uL 1.1-2.7 EO# (test code = EO#) 0.2 # 0.0-0.5 EO% (test code = EO%) 4.1 % 0.0-7.8 BA% (test code = BA%) 0.9 % 0.0-1.1 BA# (test code = BA#) 0.1 K/uL 0.0-0.1 MCH (test code = MCH) 28.8 PQ 26.8-33.2 WBC (test code = WBC) 5.8 K/UL 3.6-11.1 LY% (test code = LY%) 31.3 % 16.8-43.5 MPV (test code = MPV) 8.2 FL 7.5-10.7 MCHC (test code = MCHC) 34.3 G/DL 32.0-35.5 RBC (test code = RBC) 4.88 M/uL 3.69-4.88 GR% (test code = GR%) 53.4 % 43.3-71.9 HGB (test code = HGB) 14.0 G/DL 11.4-14.4 GR# (test code = GR#) 3.1 K/uL 1.9-7.2 PLT (test code = PLT) 204 K/UL 165-353 RDW (test code = RDW) 14.4 % 12.0-15.1 URINALYSIS([id number])2014-04-07 09:59:00 Test Item Value Reference Range Comments NIT (test code = NIT) NEGATIVE Negative TPU (test code = TPU) NEGATIVE Negative CLAR (test code = CLAR) CLEAR Clear UKET (test code = UKET) NEGATIVE Negative UGLU (test code = UGLU) NEGATIVE Negative KRISTINE (test code = KRISTINE) 2+ Negative UBLD (test code = UBLD) NEGATIVE Negative UBIL (test code = UBIL) NEGATIVE MG/DL Negative PH (test code = PH) 6.5 SPGR (test code = SPGR) 1.020 1.010-1.030 COLOR (test code = COLOR) YELLOW Yellow UUROBIL (test code = UUROBIL) 0.2 0.2, 1.0 LIPID [id number] 09:59:00 Test Item Value Reference Range Comments DLDL (test code = DLDL) 77 MG/DL 100-130 HDL (test code = HDL) 35 MG/DL 32-96 CHD (test code = CHD) 26.32 CHOL (test code = CHOL) 133 MG/DL 140-200 TGL (test code = TGL) 172 MG/DL 30-200 [id number] [id number] 09:59:00 Test Item Value Reference Range Comments BILT (test code = BILT) 0.5 MG/DL 0.1-1.0 CO2 (test code = CO2) 27.7 MMOL/L 21.0-32.0 EGFRAA (test code = EGFRAA) 44.80 >60.00 CR (test code = CR) 1.5 MG/DL 0.4-1.3 BUN/CREAT RATIO (test code = BUN/CREAT RATIO) 21 10 -14 BUN (test code = BUN) 31 MG/DL 7-18 ALB (test code = ALB) 4.2 G/DL 3.2-4.7 GLU (test code = GLU) 107 MG/DL 70-110 EGFR (test code = EGFR) 36.96 >60.00 ALK PHOS (test code = ALK PHOS) 45 U/L 50-136 ION GAP (test code = ION GAP) 14 4-16 K (test code = K) 3.7 MMOL/L 3.5-5.1 CA (test code = CA) 9.5 MG/DL 8.5-10.1 AST (test code = AST) 29 U/L 9-37 ALT (test code = ALT) 33 U/L 9-61 NA (test code = NA) 143 MMOL/L 136-145 TP (test code = TP) 7.4 G/DL 6.9-8.5 GLOB (test code = GLOB) 3.2 1.9-4.5 CL (test code = CL) 105 MMOL/L 98-110 URINE [id number] 09:59:00 Test Item Value Reference Range Comments UWBC (test code = UWBC) 10-20 NONE EPI (test code = EPI) 10-15 None GOKUL (test code = GOKUL) 1+ None URBC (test code = URBC) Occ None URINE [id number] 13:49:00 Test Item Value Reference Range Comments GOKUL (test code = GOKUL) 4+\X0D0A\ None UWBC (test code = UWBC) 5-10 NONE URBC (test code = URBC) None None EPI (test code = EPI) 2-4 None URINALYSIS([id number])2014-03-24 13:49:00 Test Item Value Reference Range Comments UBLD (test code = UBLD) NEGATIVE Negative KRISTINE (test code = KRISTINE) 1+ Negative SPGR (test code = SPGR) 1.015 1.010-1.030 UBIL (test code = UBIL) NEGATIVE MG/DL Negative PH (test code = PH) 7.0 TPU (test code = TPU) NEGATIVE Negative UUROBIL (test code = UUROBIL) 0.2 0.2, 1.0 UGLU (test code = UGLU) NEGATIVE Negative CLAR (test code = CLAR) CLOUDY Clear UKET (test code = UKET) NEGATIVE Negative NIT (test code = NIT) POSITIVE Negative COLOR (test code = COLOR) YELLOW Yellow Urine Culture, [id number] 13:49:00 Test Item Value Reference Range Comments Sendouts (test code = Sendouts) Sent to Reference Lab Sendouts (test code = Sendouts6) Sent to Reference Lab LIPID [id number] 10:13:00 Test Item Value Reference Range Comments HDL (test code = HDL) 36 MG/DL 32-96 CHOL (test code = CHOL) 160 MG/DL 140-200 TGL (test code = TGL) 207 MG/DL 30-200 DLDL (test code = DLDL) 102 MG/DL 100-130 CHD (test code = CHD) 22.50 URINALYSIS([id number])2013-12-09 10:13:00 Test Item Value Reference Range Comments UBIL (test code = UBIL) NEGATIVE MG/DL Negative UUROBIL (test code = UUROBIL) 0.2 0.2, 1.0 KRISTINE (test code = KRISTINE) TRACE Negative TPU (test code = TPU) NEGATIVE Negative NIT (test code = NIT) NEGATIVE Negative SPGR (test code = SPGR) 1.015 1.010-1.030 COLOR (test code = COLOR) YELLOW Yellow PH (test code = PH) 6.0 UBLD (test code = UBLD) NEGATIVE Negative CLAR (test code = CLAR) CLEAR Clear UGLU (test code = UGLU) NEGATIVE Negative UKET (test code = UKET) NEGATIVE Negative URINE [id number] 10:13:00 Test Item Value Reference Range Comments URBC (test code = URBC) None None UWBC (test code = UWBC) 2-4 NONE EPI (test code = EPI) Occ None GOKUL (test code = GOKUL) None None Urine Culture, [id number] 10:13:00 Test Item Value Reference Range Comments Sendouts (test code = Sendouts) Sent to Reference Lab Sendouts (test code = Sendouts6) Sent to Reference Lab LYTES [id number] 10:13:00 Test Item Value Reference Range Comments BUN/CREAT RATIO (test code = BUN/CREAT RATIO) 22 10 -14 NA (test code = NA) 140 MMOL/L 136-145 K (test code = K) 4.3 MMOL/L 3.5-5.1 GLU (test code = GLU) 116 MG/DL 70-110 CO2 (test code = CO2) 31.8 MMOL/L 21.0-32.0 CA (test code = CA) 9.6 MG/DL 8.5-10.1 CR (test code = CR) 1.8 MG/DL 0.4-1.3 CL (test code = CL) 101 MMOL/L 98-110 BUN (test code = BUN) 40 MG/DL 7-18 ION GAP (test code = ION GAP) 12 4-16 25 OH VITAMIN D [id number] 10:13:00 Test Item Value Reference Range Comments VIT D (test code = VIT D) 31 N NG/ML 30-100 AST(SGOT)2013-12-09 10:13:00 Test Item Value Reference Range Comments AST (test code = AST) 25 U/L 9-37 CT A/P STONE SEQUENCEPAT NAME: CHANDANA LEVI : 8ADDRESS: [address] SEX: FPHONE: [phone] AGE: 69PRIORITY:ERLOCATION: ERM ORD PHY: Isabela MANNING MD, EMERGENCYMR#: [id number]#: [id number] PT CLASS: REG ERDATE OF EXAM: 05/14/2020EXAMINATION: CT A/P STONE SEQUENCEABDOMENAND PELVIS CT WITHOUT CONTRAST:History: Abdominal painComparison: There is a prior CT dated 01/20/2020T echnique: Transaxial volumetric data was obtained through the abdomen and pelvis withoutadministration of intravenous contrast. Multiplanar reconstruction was generated.Findings:Heart and lung bases: Heart size is normal. There is a oval- shaped pleural-based soft tissuedensity lesion in the right lower lobe on axial image 6 that is not significantly changed comparedto the prior CT. The soft tissue component measures 3 x 1.1 cm. There is associated curvilineardensity. There is curvilinear density also noted in the left posterior sulcus..Liver: Normal size. Hypodense lesion seen in the right lobe that measures 1.4 x 1.3 cm.Spleen: Normal size. No focal lesions.Pancreas: Normal size. No ductal dilatation.Gallbladder: Status post cholecystectomy.Kidneys: Normal size, shape, and position. No hydronephrosis. Left nephrolithiasis.Adrenal glands: NormalNo abdominal lymphadenopathy or anterior abdominal wall hernia. No ascites or abdominal aorticaneurysm. No inflammatory changes are seen in the abdomen.No free air. No bowel dilatation.Minimal amount of air is noted in the bladder. Otherwise bladder iswithin normal limits. Appendixis not visualized. No free fluid in the pelvis. No inflammatory changes or lymphadenopathy are notedin the pelvis. No inguinal hernia. There are no focal suspicious lytic or sclerotic osseous lesions.There are multiple uterine calcifications. There is a diverticulum evident at the junctiondescending and sigmoid colon. No evidence of diverticulitis.Impression: 1. Hypodense lesion the right lobe of the liver. This is likely a cavernous hemangiomaor hepatic cyst 2. Multiple uterine calcifications likely due to leiomyomata. 3. Nonobstructing leftnephrolithiasis. 4. Minimalgas noted in the bladder. Has the patient had recent catheterization? 5.Stable pleural-based soft tissue density lesion that may be due to neoplasm or round atelectasisFinal report electronically signed by: Ebenezer Johns MDINTERPRETING PHYSICIAN: EBENEZER JOHNS MDThis document has been electronically signed by EBENEZER JOHNS MD on 05/14/2020 14:52:28.Order # [id number]/14/20 1452KUB FLAT UPRIGHT OR DECUBPAT NAME: CHANDANA LEVI : 8ADDRESS: [address] SEX: FPHONE: AGE: 69PRIORITY: ERLOCATION: ERM ORD PHY: Isabela MANNING MD, EMERGENCYMR#: [id number] PT CLASS: REG ERDATE OF EXAM: 05/14/2020EXAMINATION: KUB FLAT UPRIGHT OR DECUBAbdomen, supine and upright viewsHistory: ConstipationFindings: There is a CT of the abdomen dated 02/15.. There is no bowel dilatation. No free air.There are multiple air-fluid levels on the uprightview particularly in the right abdomen. These arein the expected position of the bg ascending colon. Some of the air-fluid levels however mayinvolve the small bowel which can also be seen in this region.. Pelvic calcifications are evidentlikely due to calcified leiomyomata.Impression: 1. Nonspecific air-fluid levels are seen. 2. No definitive bowel dilatation orperforation.Final report electronically signed by: Ebenezer Johns MDINTERPRETING PHYSICIAN: EBENEZER JOHNS MDThis document has been electronically signed by EBENEZER JOHNS MD on 05/14/2020 13:46:39.Order # [id number]/14/20 1346ULS NECK, THYROIDPAT NAME: CHANDANA LEVI : 1950D[address]ESS: [address] SEX: FPHONE: [phone] AGE: 69PRIORITY:RALOCATION: RAD ORD PHY: RAMESH KENNEYMR#: [id number] PT CLASS: REG CLIDATE OF EXAM: 02/16/2020EXAMINATION: ULS NECK, THYROIDULS NECK, THYROID Clinical Information: Reason for Exam: (HYPERPARATHYROIDISM)Comparison: 03/04/2019Sonography of the thyroid gland demonstrates findings of right thyroidectomy.There are multiple simple or mildly complex left thyroid cysts measuring up to 1 cm. There is a 4mm solid circumscribed nodule at the left isthmus. No enlarging or new dominant suspicious mass mostrelated to biopsy.IMPRESSION: Multiple left thyroid cysts, some which are mildly complex and 4 mm solid nodule. Rightthyroidectomy.Final report electronically signed by: Isabela Anderson MDINTERPRETING PHYSICIAN: ISABELA ANDERSON MDThis document has been e lectronically signed by ISABELA ANDERSON MD on 02/16/2020 10:26:29.Order # [id number]/16/20 1026CT ABDOMEN WITHOUT CONTRASTPAT NAME: CHANDANA LEVI : 8ADDRESS: [address] SEX: FPHONE: AGE: 69PRIORITY:RALOCATION: RAD ORD PHY: RAMESH KENNEYMR#: [id number] PT CLASS: REG CLIDATE OF EXAM: 02/16/2020EXAMINATION: CT ABDOMEN WITHOUT CONTRASTCT CHEST WITHOUT IV CONTRASTHistory: Left renal mass status post ablation. Clinical history of pulmonary nodulesComparison: February 17, 2018.Technique: . Helical multidetector axial CT imaging of the chest with multiplanar reconstruction.Findings:Chest: . Heart/vascular: Normal. . Mediastinum/jason: Normal. No significant adenopathy. .Lungs/pleura: Calcified granuloma 5mm in RML. Small noncalcified 3 and 6mm nodules inLLL stable.RLL 3X1.2X2.5cm posterior nodule stable also. . Liver visualized portions: Normal. 1 cm cyst in theright lower lobe posteriorly stable . Musculoskeletal: Normal. Degenerative changes in spine.Impression:Stable pulmonary nodules. No new findings of acute disease or metastatic disease.Final report electronically signed by: Ricky Balderas MDINTERPRETING PHYSICIAN: Amadeo FERNANDES document h as been electronically signed by RICKY BALDERAS MD on 02/16/2020 11:02:13.Order # [id number] CHEST WO CONTRASTPAT NAME: AMITACHANDANA : 8ADDRESS: [address] SEX: FPHONE: AGE: 69PRIORITY:RALOCATION: RAD ORD PHY: RAMESH KENNEYMR#: [id number] PT CLASS: REG CLIDATE OF EXAM: 02/16/2020EXAMINATION: CT CHEST WO CONTRASTCT ABDOMEN WITHOUT CONTRASTHistory: Left renal mass ablationComparison: February 17, 2018Technique: . Helical multidetector axial CT imaging of the abdomen and pelvis with multiplanarreconstruction. . Intravenous contrast: None. . Enteric contrast: None.Limitations: . The absence of IV contrast limits evaluation of vascular structures and organs. .The absence of enteric contrast limits evaluation of the bowel.Findings:. Lower chest: Imaged portion normal. . Liver: Normal. . Gallbladder / biliary: Normal. .Pancreas: Normal. . Spleen: Normal. . Adrenal glands: Normal. . Kidneys: The left renal mass isatrophic now with a partially calcified scar. No evidence of recurrent mass. Tiny of lower polecalculi measuring less than5 mm again seen. . Ureters: Normal. . Peritoneum: Normal. No ascites .Retroperitoneum: Normal. No Ret roperitoneal adenopathy . Musculoskeletal: Degenerative changes.Impression:Status post left midpole renal mass ablation without evidence of recurrence of renal mass.Final report electronically signed by: Ricky Balderas MDINTERPRETING PHYSICIAN: Amadeo FERNANDES document has been electronically signedby RICKY BALDERAS MD on 02/16/2020 11:08:53.Order # [id number] RENAL AND FUNCTION STUDYPAT NAME: CHANDANA LEVI : 1950ADDRESS: [address] SEX: FPHONE: AGE: 67PRIORITY: RALOCATION: RAD ORD PHY: ISIDRO KENNEY#: [id number] PT CLASS: REG CLIDATE OF EXAM: 03/26/2018EXAMINATION: [facility].COMPARISON: 02/17/2018.CLINICAL INFORMATION: Left renal mass.Radiopharmaceutical: 5.7 mCi technetium 99m MAG3.FINDINGS: Time activity curves were obtained for both the right and left kidney. There is normalaccumulation and excretion demonstrated by both the right and left kidney. Peak time is 6 minutesfor the left and 5 minutes for the right. Half peak time is 10 minutes for the left and 10 minutesfor the right. The differential perfusion is 38% for the left and 62% for the right.Both kidneys respond to Lasix.IMPRESSION: Differential perfusion is 38% for the left and 62% for the right.Final report electronically signed by: Martin Velásquez MDINTERPRETING PHYSICIAN: MARTIN VELÁSQUEZ MDThis document has been electronically signed by MARTIN VELÁSQUEZ MD on 03/26/2018 13:17:47.Order # [id number] Assessments Condition Name Status Diagnosis Date Treating Clinici an Hyperparathyroidism, unspecified Active Malignant neoplasm of kidney, except pelvis Active Solitary pulmonary nodule Active Nontoxic uninodular goiter Active Hyperparathyroidism, unspecified Active Malignant neoplasm of kidney, except pelvis Active Solitary pulmonary nodule Active Nontoxic uninodular goiter Active Hyperparathyroidism, unspecified Active Malignant neoplasm of kidney, except pelvis Active Solitary pulmonary nodule Active Nontoxic uninodular goiter Active Constipation Active Essential (primary) hypertension Active Impaired glucose tolerance (oral) Active Hyperlipidemia, unspecified Active Other chronic pain Active Dysuria Active Essential (primary) hypertension Active Impaired glucose tolerance (oral) Active Vitamin D deficiency, unspecified Active Essential (primary) hypertension Active Impaired glucose tolerance (oral) Active Impaired fasting glucose Active Vitamin D deficiency, unspecified Active Hyperlipidemia, unspecified Active Essential (primary) hypertension Active Headache Active Impaired glucose tolerance (oral) Active Vitamin D deficiency, unspecified Active Dysuria Active Essential (primary) hypertension Active Encounter for screening for malignant Active neoplasm of rectum Hyperlipidemia, unspecified Active Disorder of bone density and structure, Active unspecified Impaired fasting glucose Active Essential (primary) hypertension Active Vitamin D deficiency, unspecified Active Hyperlipidemia, unspecified Active Frequency of micturition Active Frequency of micturition Active Dysuria Active Dysuria Active Encounter for immunization Active Postmenopausal Status (Natural) Active Hypertension - Benign (Essential) Active Hyperlipidemia (Unspecified) Active Anxiety - Unspecified Active Exam - General Medical Active Hyperlipidemia Active Hyperlipidemia Active Hyperlipidemia Active Hyperlipidemia Active Hyperlipidemia Active Hyperlipidemia Active Hyperlipidemia Active Hyperlipidemia Active Hyperlipidemia Active Hyperlipidemia Active Hyperlipidemia Active Hyperlipidemia Active Hypertension - Benign (Essential) Active Abnormal Blood Chemistry Active Hyperlipidemia (Unspecified) Active Abnormality - Urine Active Hypertension - Benign (Essential) Active Hyperlipidemia (Unspecified) Active Abnormal Blood Chemistry Active Anxiety - Unspecified Active Deficiency - Vitamin D Active Infection - Urinary Tract Active Long-Term Use - Other Medications (Current) Active Deficiency - Vitamin D Active Hyperlipidemia (Unspecified) Active Hypertension - Benign (Essential) Active Anxiety - Unspecified Active Dysuria Active Abnormality - Urine Active Vaccination - Influenza Active Dysuria Active Deficiency - Vitamin D Active Abnormal Blood Chemistry Active Hypertension - Benign (Essential) Active Hyperlipidemia (Unspecified) Active Anxiety - Unspecified Active Hypertension - Benign (Essential) Active Hyperlipidemia (Unspecified) Active Dysuria Active Hypertensive kidney disease, unspecified, Active without chronic kidney disease Cough Active Bronchitis - Acute Active Wheezing Active Bronchitis - Acute Active Hyperlipidemia (Unspecified) Active Deficiency - Vitamin D Active Long-Term Use - Other Medications (Current) Active Hypertension - Benign (Essential) Active Anxiety - Unspecified Active Hypertensive disorder Active Anxiety Active Hypertensive disorder Active Anxiety Active Hypertensive disorder Active Anxiety Active Hypertensive disorder Active Anxiety Active Hypertensive disorder Active Anxiety Active Hypertensive disorder Active Anxiety Active Hypertensive disorder Active Anxiety Active Hypertensive disorder Active Anxiety Active Hypertensive disorder Active Anxiety Active Hypertensive disorder Active Anxiety Active Hypertensive disorder Active Anxiety Active Hypertensive disorder Active Anxiety Active Hypertensive disorder Active Anxiety Active Hypertensive disorder Active Anxiety Active Hypertensive disorder Active Anxiety Active Hypertensive disorder Active Anxiety Active Hypertensive disorder Active Anxiety Active Hypertensive disorder Active Anxiety Active Hypertensive disorder Active Anxiety Active Hypertensive disorder Active Anxiety Active Hypertensive disorder Active Anxiety Active Hypertensive disorder Active Anxiety Active Hypertensive disorder Active Anxiety Active Hypertensive disorder Active Anxiety Active Hypertensive disorder Active Anxiety Active Hypertensive disorder Active Anxiety Active Hypertensive disorder Active Anxiety Active Erosive osteoarthritis Active Benign hypertensive kidney disease Active Erosive osteoarthritis Active Benign hypertensive kidney disease Active Hyperkalemia Active Hyperkalemia Active Hyperlipidemia Active Hyperlipidemia Active S/P knee surgery Active Gout Active S/P knee surgery Active Gout Active Chronic kidney disease, stage III (moderate) Active Vitamin D insufficiency Active Chronic kidney disease, stage III (moderate) Active Vitamin D insufficiency Active Urinary tract infection Active Urinary tract infection Active Hypokalemia Active Hypokalemia Active Hypercholesterolemia Active Hypercholesterolemia Active Acute kidney failure Active Nonspecific finding on examination of urine Active Acute kidney failure Active Nonspecific finding on examination of urine Active Encounters Start End Encounter Admission Attending Care Care Encounter ID Date/Time Date/Time Type Type Clinicians Facility Department 2020-09-23 2020-09-23 Outpatient [facility] [id number] 00:00:00 00:00:00 [id number] 0076-01-18 2020-09-05 [facility] [id number] 00:00:00 00:00:00 2020-08-30 2020-08-30 [facility] [id number] 14:24:59 15:29:30 [id number] 2020-08-30 2020-08-30 [facility] [id number] 14:24:59 14:54:59 2020-08-30 2020-08-30 [facility] [id number] 00:00:00 00:00:00 [id number] [id number] 2020-08-01 Out[facility] [id number] 00:00:00 00:00:00 2020-07-29 2020-07-29 [facility] [id number] 10:53:20 11:39:47 [id number] 2020-07-29 2020-07-29 Out[facility] [id number] 10:53:20 11:08:20 2020-07-29 2020-07-29 [facility] [id number] 00:00:00 00:00:00 [id number] 0962-12-10 2020-07-28 [facility] [id number] 00:00:00 00:00:00 [id number] 2020-06-22 Outpatient [facility] [id number] 00:00:00 00:00:00 [id number] 2020-06-21 Outpatient [facility] [id number] 14:13:22 23:59:00 [id number] 2020-06-21 2020-06-21 [facility] [id number] 14:13:22 14:28:22 2020-06-21 2020-06-21 Outpatient [facility] [id number] 00:00:00 00:00:00 [id number] 0699-11-03 2020-06-21 [facility] [id number] 00:00:00 00:00:00 2020-06-21 2020-06-21 [facility] [id number] 00:00:00 00:00:00 2020-06-16 2020-06-16 Outpatient [facility] [id number] 13:26:47 14:31:22 [id number] 2020-06-16 2020-06-16 [facility] [id number] 13:26:47 13:41:47 2020-06-16 2020-06-16 Outpatient [facility] [id number] 00:00:00 00:00:00 [id number] 2020-06-10 Outpatient [facility] [id number] 00:00:00 00:00:00 [id number] 0732-10-13 2020-05-31 Outpatient Carlos MOFFETT, [facility] [id number] 00:00:00 00:00:00 Isabela Head 010 2020-05-31 2020-05-31 [facility] [id number] 00:00:00 00:00:00 2020-05-26 2020-05-26 Outpatient [facility] [id number] 10:29:08 11:39:56 [id number] 2020-05-26 2020-05-26 [facility] [id number] 10:29:08 10:44:08 2020-05-26 2020-05-26 Outpatient [facility] [id number] 00:00:00 00:00:00 [id number] 2020-05-23 [facility] [id number] 00:00:00 00:00:00 2020-05-18 2020-05-18 Discharged RAMESH KENNEY000 [id number] 15:47:00 23:59:00 Chaz [facility] 2020-05-18 2020-05-18 Outpatient [facility] [id number] 14:48:02 23:59:00 [id number] 2020-05-18 2020-05-18 [facility] [id number] 14:48:02 15:18:02 2020-05-18 2020-05-18 Outpatient [facility] [id number] 00:00:00 00:00:00 [id number] 2020-05-17 Outpatient [facility] [id number] 09:49:03 11:17:35 [id number] 2020-05-17 2020-05-17 [facility] [id number] 09:49:03 10:19:03 2020-05-17 2020-05-17 Outpatient [facility] [id number] 00:00:00 00:00:00 [id number] 5057-09-26 2020-05-14 Depart ISABELA MANNING [facility] [id number] 12:56:00 16:50:00 Emergency [facility] 2020-05-10 2020-05-10 [facility] [id number] 00:00:00 00:00:00 2020-05-10 2020-05-10 [facility] [id number] 00:00:00 00:00:00 2020-04-26 2020-04-26 [facility] [id number] 00:00:00 00:00:00 2020-04-18 2020-04-18 [facility] [id number] 00:00:00 00:00:00 2020-04-11 2020-04-11 [facility] [id number] 00:00:00 00:00:00 2020-03-22 2020-03-22 Outpatient [facility] [id number] 00:00:00 00:00:00 [id number] 2020-03-02 [facility] [id number] 00:00:00 00:00:00 2020-02-29 2020-02-29 [facility] [id number] 00:00:00 00:00:00 2020-02-25 2020-02-25 Outpatient [facility] [id number] 14:36:28 15:02:55 [id number] 2020-02-25 2020-02-25 [facility] [id number] 14:36:28 15:02:55 2020-02-25 2020-02-25 Outpatient [facility] [id number] 00:00:00 00:00:00 [id number] 2041-07-08 2020-02-24 Outpatient [facility] [id number] 00:00:00 00:00:00 [id number] 2020-02-17 [facility] [id number] 00:00:00 00:00:00 2020-02-17 2020-02-17 [facility] [id number] 00:00:00 00:00:00 2020-02-17 2020-02-17 [facility] [id number] 00:00:00 00:00:00 2020-02-17 2020-02-17 [facility] [id number] 00:00:00 00:00:00 2020-02-11 2020-02-11 [facility] [id number] 00:00:00 00:00:00 2020-02-10 2020-02-10 Outpatient [facility] [id number] 12:53:22 13:44:46 [id number] 2020-02-10 2020-02-10 [facility] [id number] 12:53:22 13:08:22 2020-02-08 2020-02-08 Out[facility] [id number] 00:00:00 00:00:00 2020-02-02 2020-02-02 Outpatient [facility] [id number] 09:11:17 23:59:00 [id number] 2020-02-02 2020-02-02 Outpatient [facility] [id number] 09:09:20 15:45:42 [id number] 2020-02-02 2020-02-02 Outpatient [facility] [id number] 00:00:00 00:00:00 [id number] 5078-06-15 2020-02-01 [facility] [id number] 00:00:00 00:00:00 2020-02-01 2020-02-01 [facility] [id number] 00:00:00 00:00:00 2020-02-01 2020-02-01 [facility] [id number] 00:00:00 00:00:00 2020-01-26 2020-01-26 Outpatient [facility] [id number] 13:37:01 14:36:59 [id number] 2020-01-26 2020-01-26 [facility] [id number] 13:37:01 14:36:59 2020-01-26 2020-01-26 Outpatient [facility] [id number] 00:00:00 00:00:00 [id number] 2019-12-28 [facility] [id number] 00:00:00 00:00:00 2019-12-01 2019-12-01 [facility] [id number] 00:00:00 00:00:00 2019-12-01 2019-12-01 [facility] [id number] 00:00:00 00:00:00 2019-11-17 2019-11-17 Outpatient [facility] [id number] 00:00:00 00:00:00 [id number] 4439-02-12 2019-09-30 [facility] [id number] 00:00:00 00:00:00 2019-09-25 2019-09-25 [facility] [id number] 00:00:00 00:00:00 2019-09-22 2019-09-22 Outpatient [facility] [id number] 15:01:10 15:48:48 [id number] 2019-09-22 2019-09-22 [facility] [id number] 15:01:10 15:16:10 2019-09-22 2019-09-22 Outpatient [facility] [id number] 00:00:00 00:00:00 [id number] 2019-09-18 Out[facility] [id number] 00:00:00 00:00:00 2019-09-08 2019-09-08 [facility] [id number] 00:00:00 00:00:00 2019-09-07 2019-09-07 [facility] [id number] 00:00:00 00:00:00 2019-09-03 2019-09-03 Outpatient [facility] [id number] 12:59:30 15:32:24 [id number] 2019-09-03 2019-09-03 [facility] [id number] 12:59:30 15:32:24 2019-09-03 2019-09-03 Outpatient [facility] [id number] 00:00:00 00:00:00 [id number] 2019-09-03 [facility] [id number] 00:00:00 00:00:00 2019-08-27 2019-08-27 Outpatient [facility] [id number] 11:30:41 23:59:00 [id number] 2019-08-27 2019-08-27 Outpatient [facility] [id number] 00:00:00 00:00:00 [id number] 2710-12-30 2019-08-17 Outpatient [facility] [id number] 12:46:36 13:07:38 [id number] 2019-08-17 2019-08-17 [facility] [id number] 12:46:36 13:01:36 2019-08-17 2019-08-17 Outpatient [facility] [id number] 00:00:00 00:00:00 [id number] 2019-07-22 Outpatient [facility] [id number] 00:00:00 00:00:00 [id number] 2019-07-20 Out[facility] [id number] 00:00:00 00:00:00 2019-07-13 2019-07-13 Outpatient [facility] [id number] 14:05:26 14:33:11 [id number] 2019-07-13 2019-07-13 Out[facility] [id number] 14:05:26 14:33:11 2019-07-13 2019-07-13 Outpatient [facility] [id number] 00:00:00 00:00:00 [id number] [id number] 2019-06-29 Outpatient [facility] [id number] 00:00:00 00:00:00 [id number] 8377-10-29 2019-06-16 Registered ALEXIS [facility] [place] [id number] 14:00:00 14:00:00 [facility] 2019-06-11 [facility] [id number] 00:00:00 00:00:00 [id number] 2019-05-18 Discharged ALEXIS GUARDADO [place] [id number] 12:53:00 23:59:00 [facility] 2019-05-11 2019-05-11 [facility] [id number] 00:00:00 00:00:00 2019-05-11 2019-05-11 [facility] [id number] 00:00:00 00:00:00 2019-05-05 2019-05-05 Outpatient [facility] [id number] 10:55:29 11:41:11 [id number] 2019-05-05 2019-05-05 [facility] [id number] 10:55:29 11:25:29 2019-05-05 2019-05-05 Outpatient [facility] [id number] 00:00:00 00:00:00 [id number] 2019-02-23 Outpatient [facility] [id number] 00:00:00 00:00:00 [id number] 7106-06-14 2019-01-30 Outpatient [facility] [id number] 10:09:57 10:57:49 [id number] 2019-01-30 2019-01-30 [facility] [id number] 10:09:57 10:57:49 2019-01-30 2019-01-30 Outpatient [facility] [id number] 00:00:00 00:00:00 [id number] 2018-12-08 [facility] [id number] 00:00:00 00:00:00 2018-12-04 2018-12-04 Outpatient [facility] [id number] 13:57:52 15:28:47 [id number] 2018-12-04 2018-12-04 [facility] [id number] 13:57:52 15:28:47 2018-12-04 2018-12-04 Outpatient [facility] [id number] 00:00:00 00:00:00 [id number] 2018-12-04 Outpatient [facility] [id number] 00:00:00 00:00:00 [id number] 2018-10-29 Outpatient [facility] [id number] 00:00:00 00:00:00 [id number] 6774-03-01 2018-10-17 [facility] [id number] 00:00:00 00:00:00 2018-10-16 2018-10-16 [facility] [id number] 00:00:00 00:00:00 2018-10-13 2018-10-13 [facility] [id number] 10:39:30 11:11:12 2018-10-13 2018-10-13 Outpatient [facility] [id number] 10:39:30 11:11:12 [id number] 2018-10-13 2018-10-13 Outpatient [facility] [id number] 00:00:00 00:00:00 [id number] 2018-09-23 Outpatient [facility] [id number] 00:00:00 00:00:00 [id number] 2018-08-26 Outpatient [facility] [id number] 00:00:00 00:00:00 [id number] 2018-08-26 [facility]patient [facility] [id number] 00:00:00 00:00:00 2018-08-25 2018-08-25 Outpatient [facility] [id number] 14:01:59 14:54:17 [id number] 2018-08-25 2018-08-25 Outpatient [facility] [id number] 14:01:59 14:54:17 2018-08-25 2018-08-25 Outpatient [facility] [id number] 00:00:00 00:00:00 [id number] 2018-08-13 Outpatient [facility] [id number] 00:00:00 00:00:00 2018-08-06 2018-08-06 Outpatient [facility] [id number] 12:50:47 13:56:46 [id number] 2018-08-06 2018-08-06 [facility] [id number] 12:50:47 13:56:46 2018-08-04 2018-08-04 Outpatient [facility] [id number] 13:22:02 23:59:00 [id number] 2018-07-28 2018-07-28 [facility] [id number] 00:00:00 00:00:00 2018-07-23 2018-07-23 Outpatient [facility] [id number] 10:40:35 11:48:22 [id number] 2018-07-23 2018-07-23 [facility] [id number] 10:40:35 11:48:22 2018-07-23 2018-07-23 Outpatient [facility] [id number] 00:00:00 00:00:00 [id number] 1261-12-03 2018-07-21 Outpatient [facility] [id number] 00:00:00 00:00:00 2018-07-16 2018-07-16 Outpatient [facility] [id number] 00:00:00 00:00:00 [id number] 2018-07-14 [facility] [id number] 00:00:00 00:00:00 2018-06-23 2018-06-23 Outpatient [facility] [id number] 00:00:00 00:00:00 [id number] 5504-10-31 2018-06-18 Outpatient [facility] [id number] 13:29:13 14:48:34 [id number] 2018-06-18 2018-06-18 Out[facility] [id number] 13:29:13 14:48:34 2018-06-18 2018-06-18 Outpatient [facility] [id number] 00:00:00 00:00:00 [id number] 2018-06-13 Outpatient [facility] [id number] 09:35:28 10:35:52 [id number] 2018-06-13 2018-06-13 [facility] [id number] 09:35:28 10:35:52 2018-06-13 2018-06-13 Outpatient [facility] [id number] 00:00:00 00:00:00 [id number] 7996-10-04 2018-05-22 Outpatient [facility] [id number] 15:28:52 16:32:25 [id number] 2018-05-22 2018-05-22 [facility] [id number] 15:28:52 16:00:00 2018-05-22 2018-05-22 Outpatient [facility] [id number] 00:00:00 00:00:00 [id number] 0759-10-01 2018-05-19 [facility] [id number] 00:00:00 00:00:00 2018-05-08 2018-05-08 Outpatient [facility] [id number] 00:00:00 00:00:00 [id number] 2018-04-29 Outpatient [facility] [id number] 00:00:00 00:00:00 [id number] 2018-03-27 Outpatient [facility] [id number] 10:39:07 11:30:47 [id number] 2018-03-27 2018-03-27 [facility] [id number] 10:39:07 11:30:47 2018-03-27 2018-03-27 Outpatient [facility] [id number] 00:00:00 00:00:00 [id number] 2018-03-12 Outpatient [facility] [id number] 10:54:25 11:24:23 [id number] 2018-03-12 2018-03-12 [facility] [id number] 10:54:25 11:24:23 2018-03-12 2018-03-12 Outpatient [facility] [id number] 10:51:36 10:51:36 [id number] 2018-03-12 2018-03-12 Outpatient [facility] [id number] 10:15:58 10:15:58 [id number] 2018-03-12 2018-03-12 [facility] [id number] 10:00:00 10:15:00 2018-03-12 2018-03-12 Outpatient [facility] [id number] 00:00:00 00:00:00 [id number] 2018-03-12 Outpatient [facility] [id number] 00:00:00 00:00:00 [id number] 2018-02-26 Outpatient [facility] [id number] 00:00:00 23:59:00 [id number] 2018-02-24 Outpatient [facility] [id number] 00:00:00 00:00:00 [id number] 2018-02-18 Outpatient [facility] [id number] 12:52:57 13:46:35 [id number] 2018-02-18 2018-02-18 Outpatient [facility] [id number] 00:00:00 00:00:00 [id number] 2018-01-01 Outpatient [facility] [id number] 14:20:40 23:59:00 [id number] 2017-12-27 2017-12-27 Outpatient [facility] [id number] 00:00:00 23:59:00 [id number] 2017-12-24 Outpatient [facility] [id number] 12:48:46 11:42:29 [id number] 2017-12-09 2017-12-09 Outpatient [facility] [id number] 13:58:24 15:01:39 [id number] 2017-12-09 2017-12-09 Outpatient [facility] [id number] 00:00:00 00:00:00 [id number] 2017-11-28 Outpatient [facility] [id number] 14:34:59 15:39:32 [id number] 2017-11-28 2017-11-28 Outpatient [facility] [id number] 00:00:00 00:00:00 [id number] 2017-10-25 Outpatient ANGELA Low [id number] 12:17:00 12:17:00 Yung 2017-10-25 2017-10-25 Outpatient [facility] [id number] 11:19:27 11:49:36 [id number] 2017-10-25 2017-10-25 Outpatient [facility] [id number] 00:00:00 00:00:00 [id number] 2017-10-25 [facility] [id number] 00:00:00 00:00:00 2017-10-03 2017-10-03 Outpatient Daria [place] [id number] 11:08:00 11:08:00 [facility] 2017-09-26 2017-09-26 Outpatient [facility] [id number] 00:00:00 00:00:00 [id number] 1961-02-05 2017-09-23 Outpatient [facility] [id number] 00:00:00 00:00:00 [id number] 2017-09-18 Outpatient [facility] [id number] 00:00:00 00:00:00 [id number] 1837-01-30 2017-09-17 Outpatient [facility] [id number] 13:30:20 15:39:03 [id number] 2017-09-17 2017-09-17 Outpatient [facility] [id number] 00:00:00 00:00:00 [id number] 0645-01-30 2017-09-17 Outpatient [facility] [id number] 00:00:00 00:00:00 [id number] 0646-01-11 2017-08-29 Outpatient [facility] [id number] 10:18:09 11:53:47 [id number] 2017-08-29 2017-08-29 Outpatient [facility] [id number] 00:00:00 00:00:00 [id number] 1674-10-04 2017-05-22 Outpatient [facility] [id number] 00:00:00 00:00:00 [id number] 2017-05-15 Outpatient EL [facility] [id number] 00:00:00 00:00:00 [id number] [id number] 2017-01-24 Outpatient Jayce Paul [id number] 10:00:00 10:00:00 MD [facility] -[id number] 4-85 Health [id number] [place], [facility] 2016-09-21 2016-09-21 Outpatient Daria [place] [id number] 10:53:00 10:53:00 [facility] 2016-09-17 2016-09-17 Outpatient Jayce Paul [id number] 11:15:00 11:15:00 MD [id number] 9-6D Health [id number] [place], [employer] 2016-05-15 2016-05-15 Outpatient Jayce Paul [id number] 10:45:00 10:45:00 MD [facility] -[id number] 5-23 Health [id number] [place] [employer] 2016-04-18 2016-04-18 Outpatient ANGELA Pulido [id number] 15:58:00 15:58:00 [place] 2016-04-18 2016-04-18 [facility] [id number] 00:00:00 00:00:00 2016-01-10 2016-01-10 Outpatient Jayce Paul [id number] 10:30:00 10:30:00 MD [facility] -[id number] B-42 Health [id number] [place], [employer] 2015-12-05 2015-12-05 Outpatient Jayce Paul [id number] 15:30:00 15:30:00 MD [facility] -42CA-9FC 9-A6 Health [id number] [place], [employer] 2015-09-05 2015-09-05 Outpatient Jayce Paul [id number] 12:15:00 12:15:00 MD [facility] -43DE-[id number] 3-FC Health [id number] [facility] 2015-08-31 2015-08-31 Outpatient Jayce Paul [id number] 11:15:00 11:15:00 MD [facility] -[id number]-[id number] 0-66 Health [id number] [facility] 2015-08-23 2015-08-23 Outpatient Jayce Paul [id number] 14:00:00 14:00:00 , [facility] -[id number]-A56 0-2E Health [id number] [facility] 2015-08-09 2015-08-09 Outpatient Jayce Paul [id number] 14:00:00 14:00:00 MD [facility] -[id number]-[id number] 2-F9 Health [id number] [facility] 2015-06-30 2015-06-30 Outpatient Jayce Paul [id number] 15:45:00 15:45:00 , [facility] -457D-[id number] 1-B1 Health [id number] [facility] 2015-06-27 2015-06-27 Outpatient Jayce Paul [id number] 14:30:00 14:30:00 MD [facility] -[id number] 7-C0 Health [id number] [facility] 2015-06-22 2015-06-22 Outpatient Jayce Paul [id number] 13:15:00 13:15:00 , [facility] -[id number] D-73 Health [id number] [facility] 2015-04-28 2015-04-28 Outpatient Jayce Paul [id number] 15:00:00 15:00:00 MD [facility] -[id number] 7-A5 Health [id number] [facility] 2015-04-14 2015-04-14 Outpatient Jayce Paul [id number] 13:00:00 13:00:00 MD [facility] -[id number] E-1B Health [id number] [facility] 2015-04-07 2015-04-07 Outpatient Jayce Paul [id number] 11:00:00 11:00:00 , [facility] -[id number] 9-DF Health [id number] [facility] 2015-03-14 2015-03-14 Outpatient [facility] [id number] 00:00:00 00:00:00 2015-01-14 2015-01-14 Outpatient Jayce Paul [id number] 08:00:00 08:00:00 , [facility] -[id number] 4-32 Health [id number] [facility] 2014-11-16 2014-11-16 Outpatient Jayce Paul [id number] 11:15:00 11:15:00 , [facility] -[id number] 1-AA Health [id number] [facility] 2014-10-21 2014-10-21 Outpatient Jayce Paul [id number] 14:15:00 14:15:00 , [facility] -[id number] 7-9E Health [id number] [facility] 2014-08-04 2014-08-04 Outpatient Jayce Paul [id number] 14:15:00 14:15:00 , [facility] -[id number] D-70 Health [id number] [place] 2014-07-20 2014-07-20 Outpatient Jayce Paul [id number] 14:30:00 14:30:00 , [facility] -[id number] 1-42 Health [id number] [place] 2014-07-07 2014-07-07 Outpatient Jayce Paul [id number] 13:45:00 13:45:00 , [facility] -[id number] E-0E Health [id number] [facility] 2014-06-23 2014-06-23 Outpatient Jayce Paul [id number] 15:30:00 15:30:00 MD [facility] -[id number] 1-4F Health [id number] [place] 2014-05-04 2014-05-04 Outpatient Jayce Paul [id number] 13:30:00 13:30:00 MD [facility] -[id number] C-16 Health [id number] [place] 2014-04-13 2014-04-13 Outpatient Jayce Paul [id number] 10:00:00 10:00:00 MD [facility] -[id number] 8-A4 Health [id number] [place] 2014-04-07 2014-04-07 Outpatient Jayce Paul [id number] 09:00:00 09:00:00 MD [facility] -[id number] A-2F Health [id number] [place] 2014-03-24 2014-03-24 Outpatient Jayce Paul [id number] 13:30:00 13:30:00 MD [facility] -[id number] 9-76 Health [id number] [place] 2014-02-25 2014-02-25 Outpatient Jayce Paul [id number] 00:00:00 00:00:00 MD [facility] -[id number] 9-E9 Health [id number] [place] 2014-02-10 2014-02-10 Outpatient Jayce Paul [id number] 13:45:00 13:45:00 MD [facility] -[id number] Health [id number] [place], [facility] 2014-02-04 2014-02-04 Outpatient Jayce Paul [id number] 00:00:00 00:00:00 MD [facility] -[id number] Health [id number] [place] 2014-01-26 2014-01-26 Outpatient Jayce Paul [id number] 15:00:00 15:00:00 MD [facility] -[id number] Health [id number] [facility] 2013-12-28 2013-12-28 Outpatient Jayce Paul [id number] 13:30:00 13:30:00 [facility][id number] [facility] [id number] [facility] 2013-12-09 2013-12-09 Outpatient Jayce Paul [id number] 10:15:00 10:15:00 MD [facility] -[id number] Health [id number] [facility] Payers Payer Name Policy Type Policy Number Effective Date Expiration D ate MEDICARE PART A AND [id number] 1999 00:00:00 PART B BCBS COMP MMED/MCARE [id number] 2016 00:00:0 0 SUPP Medicare 2019 00:00:00 Medicare 1999 00:00:00 Plan of Treatment Planned Activity Planned Date Details Comments Future Scheduled Test [code = ] Future Scheduled Test [code = ] Future Scheduled Test [code = ] Future Scheduled Test [code = ] Future Scheduled Test [code = ] Future Scheduled Test [code = ] Future Scheduled Test [code = ] Future Scheduled Test [code = ] Future Scheduled Test [code = ] Future Scheduled Test [code = ] Future Scheduled Test [code = ] Future Scheduled Test [code = ] Future Scheduled Test [code = ] Future Scheduled Test [code = ] Future Scheduled Test [code = ] Future Scheduled Test [code = ] Future Scheduled Test [code = ] Future Scheduled Test [code = ] Future Scheduled Test [code = ] Future Scheduled Test [code = ] Future Scheduled Test [code = ] Future Scheduled Test [code = ] Future Scheduled Test [code = ] Future Scheduled Test [code = ] Future Scheduled Test [code = ] Future Scheduled Test [code = ] Future Scheduled Test [code = ] Future Scheduled Test [code = ] Future Scheduled Test [code = ] Future Scheduled Test [code = ] Future Scheduled Test [code = ] Future Scheduled Test [code = ] Future Scheduled Test [code = ] Future Scheduled Test [code = ] Future Scheduled Test [code = ] Future Scheduled Test [code = ] Future Scheduled Test [code = ] Future Scheduled Test [code = ] Future Scheduled Test [code = ] Future Scheduled Test [code = ] Future Scheduled Test [code = ] Future Scheduled Test [code = ] Future Scheduled Test [code = ] Future Scheduled Test [code = ] Future Scheduled Test [code = ] Future Scheduled Test [code = ] Future Scheduled Test [code = ] Future Scheduled Test [code = ] Future Scheduled Test [code = ] Future Scheduled Test [code = ] Future Scheduled Test [code = ] Future Scheduled Test [code = ] Future Scheduled Test [code = ] Future Scheduled Test [code = ] Future Scheduled Test [code = ] Future Scheduled Test [code = ] Future Scheduled Test [code = ] Future Scheduled Test [code = ] Goal Social History Social Habit Start Date Stop Date Comments Tobacco smoking status NHIS 2020-08-30 00:00:00 2020-08-30 00:00 :00 Alcohol intake 2020-08-30 00:00:00 2020-08-30 00:00:00 Tobacco use and exposure 2020-08-30 00:00:00 2020-08-30 00:00:00 Social History Observation Description Sex Female Vital Signs Vital Name Observation Time Observation Value Comments Body height 2020-08-30 14:35:00 165.1 cm Body weight 2020-08-30 14:35:00 79.652 kg Heart rate 2020-08-30 14:35:00 71 /min Body temperature 2020-08-30 14:35:00 36.06 Love Respiratory rate 2020-08-30 14:35:00 16 /min Heart rate 2020-07-29 11:00:00 69 /min Body temperature 2020-07-29 11:00:00 36 Love Respiratory rate 2020-07-29 11:00:00 16 /min Body height 2020-07-29 11:00:00 165.1 cm Body weight 2020-07-29 11:00:00 80.74 kg Body temperature 2020-06-16 13:47:00 35.83 Love Body height 2020-06-16 13:47:00 165.1 cm Body weight 2020-06-16 13:47:00 80.559 kg Heart rate 2020-05-26 10:51:00 80 /min Body temperature 2020-05-26 10:51:00 36.56 Love Respiratory rate 2020-05-26 10:51:00 16 /min Body height 2020-05-26 10:51:00 165.1 cm Body weight 2020-05-26 10:51:00 79.652 kg WEIGHT 2020-05-18 15:47:00 79.991335 kg HEIGHT 2020-05-18 15:47:00 165.156895 cm Heart rate 2020-05-18 15:06:00 71 /min Body temperature 2020-05-18 15:06:00 36.11 Love Respiratory rate 2020-05-18 15:06:00 16 /min Body height 2020-05-18 15:06:00 165.1 cm Body weight 2020-05-18 15:06:00 79.379 kg Body temperature 2020-05-17 10:26:00 36.11 Love Body height 2020-05-17 10:26:00 165.1 cm Body weight 2020-05-17 10:26:00 79.379 kg WEIGHT 2020-05-14 12:56:00 80.645253 kg HEIGHT 2020-05-14 12:56:00 165.284764 cm Body temperature 2020-02-25 14:42:00 36.11 Love Body height 2020-02-25 14:42:00 165.1 cm Body weight 2020-02-25 14:42:00 80.015 kg Heart rate 2020-02-10 12:58:00 65 /min Body temperature 2020-02-10 12:58:00 35.89 Love Respiratory rate 2020-02-10 12:58:00 14 /min Body height 2020-02-10 12:58:00 165.1 cm Body weight 2020-02-10 12:58:00 80.468 kg Oxygen saturation in Arterial blood by 2020-02-10 12:58:00 96 % Pulse oximetry Heart rate 2020-01-26 14:07:00 78 /min Body temperature 2020-01-26 14:07:00 35.94 Love Respiratory rate 2020-01-26 14:07:00 14 /min Body height 2020-01-26 14:07:00 165.1 cm Body weight 2020-01-26 14:07:00 81.194 kg Systolic blood pressure 2019-09-22 15:04:00 126 mm[Hg] Diastolic blood pressure 2019-09-22 15:04:00 80 mm[Hg] Body height 2019-09-22 15:04:00 165.1 cm Body weight 2019-09-22 15:04:00 80.287 kg Systolic blood pressure 2019-09-03 13:08:00 96 mm[Hg] Diastolic blood pressure 2019-09-03 13:08:00 60 mm[Hg] Body temperature 2019-09-03 13:08:00 36.67 Love Body height 2019-09-03 13:08:00 165.1 cm Body weight 2019-09-03 13:08:00 80.74 kg Systolic blood pressure 2019-08-17 12:48:00 132 mm[Hg] Diastolic blood pressure 2019-08-17 12:48:00 68 mm[Hg] Body temperature 2019-08-17 12:48:00 36.94 Love Body height 2019-08-17 12:48:00 165.1 cm Body weight 2019-08-17 12:48:00 80.377 kg Systolic blood pressure 2019-07-13 14:11:00 126 mm[Hg] Diastolic blood pressure 2019-07-13 14:11:00 78 mm[Hg] Body temperature 2019-07-13 14:11:00 36.83 Love Systolic blood pressure 2019-05-05 11:17:00 120 mm[Hg] Diastolic blood pressure 2019-05-05 11:17:00 62 mm[Hg] Body temperature 2019-05-05 11:17:00 36.06 Love Body height 2019-05-05 11:17:00 165.1 cm Body weight 2019-05-05 11:17:00 79.198 kg Systolic blood pressure 2019-01-30 10:22:00 138 mm[Hg] Diastolic blood pressure 2019-01-30 10:22:00 76 mm[Hg] Body temperature 2019-01-30 10:22:00 36.22 Love Body height 2019-01-30 10:22:00 165.1 cm Body weight 2019-01-30 10:22:00 79.289 kg Systolic blood pressure 2018-12-04 14:52:00 110 mm[Hg] Diastolic blood pressure 2018-12-04 14:52:00 64 mm[Hg] Body temperature 2018-12-04 14:52:00 35.56 Love Body height 2018-12-04 14:52:00 165.1 cm Body weight 2018-12-04 14:52:00 80.831 kg SYSTOLIC BLOOD PRESSURE 2018-10-13 10:50:00 118 mm[Hg] DIASTOLIC BLOOD PRESSURE 2018-10-13 10:50:00 60 mm[Hg] BODY TEMPERATURE 2018-10-13 10:50:00 36.89 Love HEIGHT 2018-10-13 10:50:00 165.1 cm WEIGHT 2018-10-13 10:50:00 79.833 kg SYSTOLIC BLOOD PRESSURE 2018-08-25 14:31:00 110 mm[Hg] DIASTOLIC BLOOD PRESSURE 2018-08-25 14:31:00 76 mm[Hg] BODY TEMPERATURE 2018-08-25 14:31:00 36.5 Love HEIGHT 2018-08-25 14:31:00 165.1 cm WEIGHT 2018-08-25 14:31:00 78.926 kg SYSTOLIC BLOOD PRESSURE 2018-08-06 12:56:00 120 mm[Hg] DIASTOLIC BLOOD PRESSURE 2018-08-06 12:56:00 64 mm[Hg] BODY TEMPERATURE 2018-08-06 12:56:00 35.89 Love HEIGHT 2018-08-06 12:56:00 165.1 cm WEIGHT 2018-08-06 12:56:00 78.563 kg SYSTOLIC BLOOD PRESSURE 2018-07-23 10:57:00 132 mm[Hg] DIASTOLIC BLOOD PRESSURE 2018-07-23 10:57:00 60 mm[Hg] BODY TEMPERATURE 2018-07-23 10:57:00 36.39 Love WEIGHT 2018-07-23 10:57:00 77.837 kg SYSTOLIC BLOOD PRESSURE 2018-06-18 13:57:00 128 mm[Hg] DIASTOLIC BLOOD PRESSURE 2018-06-18 13:57:00 70 mm[Hg] BODY TEMPERATURE 2018-06-18 13:57:00 36.11 Love HEIGHT 2018-06-18 13:57:00 166.4 cm WEIGHT 2018-06-18 13:57:00 77.293 kg SYSTOLIC BLOOD PRESSURE 2018-06-13 09:50:00 110 mm[Hg] DIASTOLIC BLOOD PRESSURE 2018-06-13 09:50:00 60 mm[Hg] BODY TEMPERATURE 2018-06-13 09:50:00 36.44 Love HEIGHT 2018-06-13 09:50:00 166.4 cm WEIGHT 2018-06-13 09:50:00 76.839 kg SYSTOLIC BLOOD PRESSURE 2018-05-22 16:11:00 118 mm[Hg] DIASTOLIC BLOOD PRESSURE 2018-05-22 16:11:00 60 mm[Hg] BODY TEMPERATURE 2018-05-22 16:11:00 36.78 Love HEIGHT 2018-05-22 16:11:00 166.4 cm WEIGHT 2018-05-22 16:11:00 76.658 kg SYSTOLIC BLOOD PRESSURE 2018-03-27 10:48:00 124 mm[Hg] DIASTOLIC BLOOD PRESSURE 2018-03-27 10:48:00 60 mm[Hg] BODY TEMPERATURE 2018-03-27 10:48:00 36.11 Love HEIGHT 2018-03-27 10:48:00 166.4 cm WEIGHT 2018-03-27 10:48:00 76.295 kg SYSTOLIC BLOOD PRESSURE 2018-03-12 10:55:00 128 mm[Hg] DIASTOLIC BLOOD PRESSURE 2018-03-12 10:55:00 80 mm[Hg] BODY TEMPERATURE 2018-03-12 10:55:00 36.44 Love HEIGHT 2018-03-12 10:55:00 165.1 cm WEIGHT 2018-03-12 10:55:00 75.297 kg
== END ==
LOC: EMPHEALTH 15:02
PROVIDERS: ATTEND Internal Medicine
DX: Z23 Encounter for immunization (principal)
CPT/HCPCS: 91300